=== PATIENT | male | born 1990 | race Caucasian/White ===

== ENCOUNTER 2024-12-15 10:53 | Emergency (ER) | payer OTHER ==
--- OUTSIDE RECORDS SUMMARY | 2024-12-15 10:56 | XMS REPORT | Continuity of Care Document ---
Author Name Unknown Address [address] [facility] [address] [place] [address] [facility] Address [address] [facility]. [address] [place] [address] Care Team Providers Care Security Chief [employer] Name Role Phone NELLY DAMON Primary Care Physician UnavailLita Palacio Attending Clinician Unavailable Luke Fofana Attending Clinician [phone] Unknown, Attending Attending Clinician Unavailab LUKE Holt Attending Clinician Unavailable Nelly Velasquez Attending Clinician [phone] ARNAUD COULTER Attending Clinician UnavailARNAUD Dave Attending Clinician UnavailArnaud Dave MD Attending Clinician + [phone] [facility] Attending Clinician UnavailNELLY Schwartz Attending Clinician Unavailable Nelly Velasquez Attending Clinician [phone] AJ PUGA Attending Clinician Unavailable Aj Puga MD Attending Clinician [phone] Unknown, Attending Attending Clinician Unavailab Edita Villatoro Attending Clinician [phone] EDITA SHAFFER Attending Clinician Unavailable Doctor Unassigned, [facility] Attending Clinician U navailable Lab, Ang - Db Attending Clinician Unavailable Alice Corbin RN Attending Clinician Unavailab Freida Montanez Attending Clinician [phone] Payers Payer Name Policy Type Policy Number Effective Date Expirati on Date Source Problems Condition Name Condition Details Condition Category Status Onset Date Resolution Date Last Treatment Date Treating Clinician Comments Source Obesity (BMI 30-39.9) Obesity (BMI 30-39.9) Disease Active 06-12 00:00: 00 [facility] Hypertrigl yceridemia Hypertrigl yceridemia Diagnosis Active [facility] Overweight (BMI 25.0-29.9) Overweight (BMI 25.0-29.9) Diagnosis Active [facility] Encounter for vitamin deficiency screening Encounter for vitamin deficiency screening Problem Active [facility] BMI 28.0-28.9, adult BMI 28.0-28.9, adult Problem Active [facility] 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 [facility] Hyperlipid emia, unspecifie d Hyperlipid emia, unspecifie d Problem Active [facility] Allergies, Adverse Reactions, Alerts Allergy Name Allergy Type Status Severity Reaction(s) Onset Date Inactive Date Treating Clinician Comments Source NO KNOWN ALLERGIE S Drug Class Active [facility] Social History Social Habit Start Date Stop Date Quantity Comments Source [facility] intake 2024-05-16 00:00:00 2024-05-16 00:00:00 Ex-drinker (finding) [facility] History of Social function 2024-03-28 00:00:00 2024-03-28 00:00:00 [facility] Alcohol Comment 2024-03-28 00:00:00 2024-03-28 00:00:00 occasional [facility] Exposure to SARS-CoV-2 (event) 2022-10-29 00:00:00 2022-11-08 12:28:00 Not sure [facility] Alcohol intake 2022-06-18 00:00:00 2022-06-18 00:00:00 .43 /d [facility] Tobacco use and exposure 2021-06-12 00:00:00 2021-06-12 00:00:00 Smokeless tobacco non-user [facility] Sex assigned at 1990 00:00:00 1990 00:00:00 [facility] Smoking Status Start Date Stop Date Source Never smoked tobacco [facility] Medications Ordered Medication Name Filled Medication Name Start Date Stop Date Current Medication? Ordering Clinician Indication Dosage Frequency Signature (SIG) Comments Components Source promethazin e-dextromet horphan 6.25-15 mg/5 mL syrup 12-13 00:00: 00 12-24 04:59 :00 Yes [id number] 10mL Take 10 mL by mouth 4 (four) times daily for 10 days. [facility] oseltamivir (TAMIFLU) 75 mg capsule 12-13 00:00: 00 12-19 04:59 :00 Yes [id number] 75mg Take 1 capsule by mouth in the morning and 1 capsule in the evening. Do all this for 5 days. [facility] FENOFIBRATE MICRONIZED 134 mg capsule 2023-09 00:00: 00 Yes [id number] 134mg Take 1 capsule by mouth in the morning [facility] bromphenira mine-pseudo ephedrine-D M (BROMFED DM) 2-30-10 mg/5 mL syrup 04-15 00:00: 00 Yes [id number] 10mL Take 10 mL by mouth 4 (four) times daily as needed for Congestion /Allergies or Cold symptoms. [facility] methylPREDN ISolone (MEDROL, KATHERIN,) 4 mg tablets 04-15 00:00: 00 Yes [id number] Take by mouth SEE-INSTRU CTIONS. follow package directions [facility] guaiFENesin 400 mg tablet 04-15 00:00: 00 Yes [id number] 400mg Take 1 tablet by mouth every 4 (four) hours as needed for Cough. [facility] amoxicillin -clavulanat e (AUGMENTIN) 875-125 mg per tablet 04-15 00:00: 00 04-26 04:59 :00 No [id number] 1{tbl} Take 1 tablet by mouth in the morning and 1 tablet in the evening. Do all this for 10 days. [facility] albuterol 90 mcg/actuati on inhaler 04-10 00:00: 04-21 04:59 :00 No [id number] 2{puff} Inhale 2 Puffs every 6 (six) hours as needed (cough) for up to 10 days. [facility] benzonatate 200 mg capsule 04-10 00:00: 00 04-21 04:59 :00 No [id number] 200mg Take 1 capsule by mouth 3 (three) times daily as needed for Cough for up to 10 days. [facility] fenofibrate micronized 134 mg capsule 03-29 00:00: 07-20 00:00 :00 No [id number] 134mg Take 1 capsule by mouth in the morning. [facility] predniSONE 20 mg tablet 12-11 00:00: 03-28 00:00 :00 No [id number] Take three tablets daily for 6 days, then two tablets daily for 6 days, then one tablet daily for 6 days, then half tablet daily for 6 days. [facility] sulfamethox azole-trime thoprim (BACTRIM DS) 800-160 mg per tablet 11-08 00:00: 11-16 05:59 :00 No [id number] 1{tbl} Take 1 tablet by mouth in the morning and 1 tablet in the evening. Do all this for 7 days. [facility] mupirocin 2 % ointment 11-08 00:00: 11-16 05:59 :00 No [id number] Apply to area(s) 3 (three) times daily for 7 days. [facility] ibuprofen (IBU) tablet 800 mg 06-18 14:36: 00 06-18 14:38 :00 No [id number] 800mg [facility] ondansetron (ZOFRAN-ODT ) disintegrat ing tablet 4 mg 06-18 14:33: 00 06-18 14:37 :00 No [id number] 4mg [facility] ondansetron 4 mg disintegrat ing tablet 06-18 00:00: 00 03-28 00:00 :00 No [id number] 4mg Take 1 tablet by mouth every 8 (eight) hours as needed for Nausea and Vomiting (N/V). [facility] dicyclomine 10 mg capsule 06-18 00:00: 00 03-28 00:00 :00 No [id number] 10mg Take 1 capsule by mouth 4 (four) times daily as needed for Abdominal pain. [facility] No known medications 06-12 14:08: 26 No [facility] Vascepa Vascepa 01-04 00:00: 00 05-04 00:00 :00 No Na Katz 2 capsules with meals [facility] Ambien Ambien 12-22 00:00: 00 Yes Na Katz 1 tablet at bedtime [facility] Vital Signs Vital Name Observation Time Observation Value Comments S ource Systolic blood pressure 2024-12-13 20:41:00 113 mm[Hg] [facility] Diastolic blood pressure 2024-12-13 20:41:00 71 mm[Hg] [facility] Heart rate 2024-12-13 20:41:00 97 /min [facility] Body temperature 2024-12-13 20:41:00 38 Jacquie [facility] Respiratory rate 2024-12-13 20:41:00 22 /min [facility] Body weight 2024-12-13 20:41:00 107.82 kg [facility] BMI 2024-12-13 20:41:00 33.15 kg/m2 [facility] Oxygen saturation in Arterial blood by Pulse oximetry 2024-12-13 20:41:00 97 /min [facility] Systolic blood pressure 2024-07-04 20:19:00 128 mm[Hg] [facility] Diastolic blood pressure 2024-07-04 20:19:00 86 mm[Hg] [facility] Heart rate 2024-07-04 20:19:00 58 /min [facility] Respiratory rate 2024-07-04 20:19:00 16 /min [facility] Body height 2024-07-04 20:19:00 180.3 cm [facility] Body weight 2024-07-04 20:19:00 105.348 kg [facility] BMI 2024-07-04 20:19:00 32.39 kg/m2 [facility] Oxygen saturation in Arterial blood by Pulse oximetry 2024-07-04 20:19:00 97 /min [facility] Systolic blood pressure 2024-04-19 14:17:00 121 mm[Hg] [facility] Diastolic blood pressure 2024-04-19 14:17:00 76 mm[Hg] [facility] Heart rate 2024-04-19 14:17:00 66 /min [facility] Body temperature 2024-04-19 14:17:00 37 Jacquie [facility] Body height 2024-04-19 14:17:00 180.3 cm [facility] Body weight 2024-04-19 14:17:00 104.327 kg [facility] BMI 2024-04-19 14:17:00 32.08 kg/m2 [facility] Oxygen saturation in Arterial blood by Pulse oximetry 2024-04-19 14:17:00 97 /min [facility] Systolic blood pressure 2024-04-15 14:20:00 118 mm[Hg] [facility] Diastolic blood pressure 2024-04-15 14:20:00 80 mm[Hg] [facility] Heart rate 2024-04-15 14:20:00 88 /min [facility] Body temperature 2024-04-15 14:20:00 37.61 Jacquie [facility] Respiratory rate 2024-04-15 14:20:00 17 /min [facility] Body height 2024-04-15 14:20:00 180.3 cm [facility] Body weight 2024-04-15 14:20:00 104.866 kg [facility] BMI 2024-04-15 14:20:00 32.24 kg/m2 [facility] Oxygen saturation in Arterial blood by Pulse oximetry 2024-04-15 14:20:00 94 /min [facility] Systolic blood pressure 2024-04-10 14:38:00 124 mm[Hg] [facility] Diastolic blood pressure 2024-04-10 14:38:00 82 mm[Hg] [facility] Heart rate 2024-04-10 14:38:00 77 /min [facility] Body temperature 2024-04-10 14:38:00 36.22 Jacquie [facility] Respiratory rate 2024-04-10 14:38:00 17 /min [facility] Body height 2024-04-10 14:38:00 180.3 cm [facility] Body weight 2024-04-10 14:38:00 105.915 kg [facility] BMI 2024-04-10 14:38:00 32.57 kg/m2 [facility] Oxygen saturation in Arterial blood by Pulse oximetry 2024-04-10 14:38:00 97 /min [facility] Systolic blood pressure 2024-03-28 13:58:00 127 mm[Hg] [facility] Diastolic blood pressure 2024-03-28 13:58:00 83 mm[Hg] [facility] Heart rate 2024-03-28 13:58:00 71 /min [facility] Body temperature 2024-03-28 13:58:00 36.72 Jacquie [facility] Respiratory rate 2024-03-28 13:58:00 19 /min [facility] Body height 2024-03-28 13:58:00 180.3 cm [facility] 2024-03-28 13:58:00 107.049 kg [facility] BMI 2024-03-28 13:58:00 32.92 kg/m2 [facility] Oxygen saturation in Arterial blood by Pulse oximetry 2024-03-28 13:58:00 98 /min [facility] Body weight 2022-11-08 18:41:00 94.212 kg [facility] BMI 2022-11-08 18:41:00 28.97 kg/m2 [facility] Oxygen saturation in Arterial blood by Pulse oximetry 2022-11-08 18:41:00 98 /min [facility] Systolic blood pressure 2022-11-08 18:41:00 126 mm[Hg] [facility] Diastolic blood pressure 2022-11-08 18:41:00 86 mm[Hg] [facility] Heart rate 2022-11-08 18:41:00 91 /min [facility] Body temperature 2022-11-08 18:41:00 36.78 Jacquie [facility] Respiratory rate 2022-11-08 18:41:00 17 /min [facility] Body height 2022-11-08 18:41:00 180.3 cm [facility] Systolic blood pressure 2022-06-18 14:28:00 127 mm[Hg] [facility] Diastolic blood pressure 2022-06-18 14:28:00 80 mm[Hg] [facility] Heart rate 2022-06-18 14:28:00 125 /min [facility] Body temperature 2022-06-18 14:28:00 38.89 Jacquie [facility] Body height 2022-06-18 14:28:00 180.3 cm [facility] Body weight 2022-06-18 14:28:00 104.327 kg [facility] BMI 2022-06-18 14:28:00 32.08 kg/m2 [facility] Oxygen saturation in Arterial blood by Pulse oximetry 2022-06-18 14:28:00 98 /min [facility] Systolic blood pressure 2021-06-12 18:40:00 133 mm[Hg] [facility] Diastolic blood pressure 2021-06-12 18:40:00 84 mm[Hg] [facility] Heart rate 2021-06-12 18:40:00 69 /min [facility] Body temperature 2021-06-12 18:40:00 37.06 Jacquie [facility] Body height 2021-06-12 18:40:00 180.3 cm [facility] Body weight 2021-06-12 18:40:00 104.327 kg [facility] BMI 2021-06-12 18:40:00 32.08 kg/m2 [facility] Oxygen saturation in Arterial blood by Pulse oximetry 2021-06-12 18:40:00 99 /min [place] [facility] Procedures Procedure Date / Time Performed Performing Clinicia n Source POCT MOLECULAR FLU 2024-12-13 20:43:00 Unknown, Attend ing [facility] SLEEP STUDY DATA REPORT 2024-05-15 19:03:02 Nelly Damon [facility] SLEEP LAB RESULTS 2024-05-15 19:02:07 Nelly Damon [facility] XR CHEST 2 VW 2024-04-15 14:44:23 Aj Puga [facility] POCT MOLECULAR STREP 2024-04-15 14:25:00 Unknown, Attmeghan leigh [facility] POCT SARS-COV-2 ANTIGEN (BINAX NOW) 2024-04-15 14:17:00 Aj Puga [facility] POCT MOLECULAR FLU 2022-06-18 14:40:00 Aj Puga [facility] CONSENT/REFUSAL FOR DIAGNOSIS AND TREATMENT 2022-06-18 14:15:57 Doctor Unassigned, [facility] Encounters Start Date/Time End Date/Time Encounter Type Admission Type Attending [facility] Care Facility Care Department Encounter ID Source 2024-05-28 09:42:[address] [facility] [id number] [facility] 2024-12-13 15:40:00 2024-12-13 16:00:00 Urgent Care Luke Givens Unknown, [facility] 1.2.840.114 350.1.13.10 4.2.7.2.686 [id number] [facility] 2024-12-13 15:40:00 2024-12-13 15:40:00 Outpatient LUKE DAVILA [facility] [id number] [facility] 2024-05-15 00:00:00 2024-11-03 07:03:54 Orders Only Nelly Damon [facility] 1.2.840.114 350.1.13.10 4.2.7.2.686 [id number] [facility] 2024-05-15 00:00:00 2024-11-03 07:03:42 Orders Only Nelly Damon [facility] 1.2.840.114 350.1.13.10 4.2.7.2.686 [id number] [facility] 2024-08-21 00:00:00 2024-08-21 16:28:44 Refill Nelly Damon [facility] 1.2.840.114 350.1.13.10 4.2.7.2.686 [id number] [facility] 2024-06-28 00:00:00 2024-08-04 18:27:02 Patient Secure Msg Nelly Damon [facility] 1.2.840.114 350.1.13.10 4.2.7.2.686 [id number] [facility] 2024-07-20 00:00:00 2024-07-20 09:38:41 Refill Nelly Damon [facility] 1.2.840.114 350.1.13.10 4.2.7.2.686 [id number] [facility] 2024-07-04 00:00:00 2024-07-04 15:30:40 Telephone Arnaud Coulter [facility] 1.2.840.114 350.1.13.10 4.2.7.2.686 [id number] [facility] 2024-07-04 15:00:00 2024-07-04 15:30:00 Office Visit Arnaud Coulter [facility] 1.2.840.114 350.1.13.10 4.2.7.2.686 [id number] [facility] 2024-07-04 15:00:00 2024-07-04 15:00:00 Outpatient R ARNAUD COULTER STRAHIL [facility] [id number] [facility] 2024-06-05 00:00:00 2024-06-05 15:52:36 Telephone Gavin Nelly Farah [facility] 1.2.840.114 350.1.13.10 4.2.7.2.686 [id number] [facility] 2024-05-24 00:00:00 2024-05-28 14:21:17 Patient Secure Msg GavinNelly parmar [facility] 1.2.840.114 350.1.13.10 4.2.7.2.686 [id number] [facility] 2024-05-25 00:00:00 2024-05-25 16:02:06 Telephone Obdulia Damonmeghan Farah [facility] 1.2.840.114 350.1.13.10 4.2.7.2.686 [id number] [facility] 2024-05-16 00:00:00 2024-05-16 09:20:36 Telephone Gavin Nelly Farah [facility] 1.2.840.114 350.1.13.10 4.2.7.2.686 [id number] [facility] 2024-05-10 15:00:00 2024-05-10 15:15:00 [employer] 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[employer] 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 Visit [facility] Sleep Lab Arnaud Coulter [facility] 1.840.114 350.1.13.10 4.2.7.2.686 [id number] [facility] 2024-05-10 15:00:00 2024-05-10 15:00:00 Outpatient R ARNAUD COULTER STRALAIsra [facility] [id number] [facility] 2024-04-19 09:30:00 2024-04-19 10:00:22 Outpatient R NELLY DAMON [facility] [id number] [facility] 2024-04-19 09:30:00 2024-04-19 10:00:22 Office Visit Nelly Damon [facility] 1.840.114 350.1.13.10 4.2.7.2.686 [id number] [facility] 2024-04-15 09:30:05 2024-04-15 23:59:00 Outpatient R AJ PUGA [facility] [id number] [facility] 2024-04-15 09:30:05 2024-04-15 23:59:00 [facility] 1.840.114 350.1.13.10 4.2.7.2.686 [id number] [facility] 2024-04-15 09:20:00 2024-04-15 09:51:36 Urgent Care Aj Puga, Attending [facility] 1..840.114 350.1.13.10 4.2.7.2.686 [id number] [facility] 2024-04-10 09:20:00 2024-04-10 09:40:00 Urgent Care Edita Shaffer Unknown, Attending [facility] 1.2.840.114 350.1.13.10 4.2.7.2.686 [id number] [facility] 2024-04-10 09:20:00 2024-04-10 09:20:00 Outpatient R SHAFFERDAVID PHILLIPKASEY [facility] [id number] [facility] 2024-03-29 00:00:00 2024-03-29 16:06:27 Patient Secure Msg Doctor Unassigned, 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 Lab, Ang - Nelly Brock Gagan [facility] 1.2.840.114 350.1.13.10 4.2.7.2.686 [id number] [facility] 2024-03-28 10:00:00 2024-03-28 09:34:42 Outpatient R NELLY DAMON [facility] [id number] [facility] 2024-03-28 09:00:00 2024-03-28 09:20:32 Office Visit Nelly Damon [facility] 1.2.840.114 350.1.13.10 4.2.7.2.686 [id number] [facility] 2023-12-12 11:40:00 2023-12-12 11:56:55 Outpatient R EDITA SHAFFER [facility] [id number] [facility] 2022-11-08 12:20:00 2022-11-08 12:40:00 Urgent Care David Shafferbreakimberley Unknown, Attending [facility] 1..840.114 350.1.13.10 4.2.7.2.686 [id number] [facility] 2022-11-08 12:20:00 2022-11-08 12:20:00 Outpatient R EDITA SHAFFER [facility] [id number] [facility] 2022-06-19 00:00:00 2022-06-19 00:00:00 Letter (Out) Alice Corbin [facility] 1..840.114 350.1.13.10 4.2.7.2.686 [id number] [facility] 2022-06-18 09:20:00 2022-06-18 09:58:39 Outpatient AJ MELLO [facility] [id number] [facility] 2022-06-18 09:20:00 2022-06-18 09:40:00 Urgent Care Freida Buckley [facility] 1.2.840.114 350.1.13.10 4.2.7.2.686 [id number] [facility] 2022-06-18 00:00:00 2022-06-18 00:00:00 Orders Only Doctor Unassigned, [facility] 1.2.840.114 350.1.13.10 4.2.7.2.686 [id number] [facility] 2021-06-12 13:24:05 2021-06-12 14:19:55 Office Visit Nelly Damon [facility] 1.2.840.114 350.1.13.10 4.2.7.2.686 [id number] [facility] 2021-06-12 13:30:00 2021-06-12 13:30:00 Outpatient R NELLY DAMON [facility] [id number] [facility] 2020-12-18 13:00:00 2020-12-18 13:00:00 Outpatient NELLY TOBIN [facility] [id number] [facility] 2019-01-04 16:40:00 2019-01-04 16:40:00 [facility] [id number] [facility] Results Test Description Test Time Test Comments Results Result Co mments Source [facility] SARS-COV-2 ANTIGEN (BINAX NOW)2024-04-15 14:33:00* Test Item Value Reference Range Interpretation Comme nts POCT SARS-COV-2 ANTIGEN (test code = 31362-9) Not Detected Not Detected, See Comment On board controls acceptable with C Line (test code = 3574) Yes Lab Interpretation (test code = 33987-4) Normal [facility] MOLECULAR [id number] 14:32:52* Test Item Value Reference Range Interpretation Comme nts POCT Molecular Strep (test c ode = 42771-2) Negative Negative Lab Interpretation (test cod e = 51269-7) Normal [facility] MOLECULAR [id number] 14:51:39* Test Item Value Reference Range Interpretation Comme nts POCT Molecular FluA (test co de = 65025-6) Negative Negative POCT Molecular FluB (test co de = 72697-8) Negative Negative Lab Interpretation (test cod e = 46011-7) Normal [facility] Notes Date/Time Note Provider Source 2024-08-21 16:21:17 Spoke with patient, he still has a 30 day supply of fenofibrate and he will talk to his about scheduling appointment, they my be changing providers. 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 Notes: 03/29/24 Last Refilled: [facility] [address] [place] [address] Recent Visits Date Type Provider Dept 04/19/24 Office Visit Nelly Damon PA [facility] 03/28/24 Office Visit Nelly Damon PA [facility] Showing recent visits within past 540 days with a meds authorizing provider and meeting all other requirements Future Appointments No visits were found meeting these conditions. Showing future appointments within next 150 days with a meds authorizing provider and meeting all other requirements Name from pharmacy: Fenofibrate Micronized 134 MG Oral Capsule Will file in chart as: FENOFIBRATE MICRONIZED 134 mg capsule Sig: Take 1 capsule by mouth in the morning. Original sig: Take 1 capsule by mouth in the morning Disp: 30 capsule Refills: 0 Start: 07/20/2024 Class: eRX For: Hypertriglyceridemia Last ordered: 3 months ago (03/29/2024) by ALISE Platt Last refill: 06/24/2024 Rx #: [id number] Antilipid: Fibric Acid Derivatives [id number] 05:54 AM Protocol Details Valid encounter within last 12 months AST in normal range and within 360 days ALT in normal range and within 360 days HDL within 360 days LDL within 360 days Total Cholesterol within 360 days Triglycerides within 360 days To be filled at: [facility] [address] [place] [address] Terese Montoya KAMRAN [facility] 2024-07-04 15:47:49 New APAP orders submitted via [place] to [place] Patient. All forms scanned into chart. If any questions on status order please contact [facility] at [phone]. Shayy Alvarez MA [facility] 2024-07-04 15:29:46 New APAP at 5-15 cm H2O SLEEP MEDICINE-PHYSICIAN/I NTERNAL MED [facility] 2024-06-29 14:38:04 Noted Gladis Noriega MA [facility] 2024-06-05 15:49:00 Patient signed Medical release forms to have faxed to [facility] P: [phone] F:[phone] Faxed to HIM to retreive those records and have it faxed. Jose F Chang [facility] 2024-05-25 15:59:39 Images from the original note were not included. [facility] medical records request form.// placed in providers basket. Freida Irizarry [facility] 2024-05-24 20:32:44 Recommend patient signing a record release from our office to send sleep apnea testing to his provider at the [place]. He can complete with PSS at any time M-F. [facility] 2024-03-28 10:00:00 Images from the original note were not included. Venipuncture collection performed by clean technique on the left anticubitus. Total of 1 attempts were made. Slight pressure and a bandage/dressing were applied to the site(s). The patient experienced no complications. The following specimens were processed according to instructions and sent to [facility] laboratories per lab order on 03/28/2024 : LT BLUE SST 2 RED LAV 2 PPT DK GREEN (LiHep) DK GREEN (SodH) OBANDO DK BLUE (K2) DK BLUE (S) ACD Blood Culture NIPT/NTD T [facility]
[2024-12-15] MEDS ORDERED: ONDANSETRON 4 MG (ODT) TAB ONE (11:05)
[2024-12-15] MEDS ORDERED: NA CHLORIDE 0.9% 1,000 ML ONE (11:11)
[2024-12-15] MEDS ORDERED: ONDANSETRON 4 MG/2 ML VIAL ONE (11:13)
[2024-12-15] MEDS ORDERED: KETOROLAC 30 MG/ML INJ ONE (11:13)
[2024-12-15 12:17] LABS: Absolute Lymphocytes (CBC) 0.8 K/uL (0.7-4.9); Absolute Monocytes 0.9 K/uL (0.1-1.3); Absolute Neutrophil 5.9 K/uL (1.8-8.0); Basophils % 0.4 % (0-1.3); Eosinophils % 0.1 % (0-4.4); Hematocrit 35.6 % (39.6-49.0); Hemoglobin 12.2 g/dL (13.6-17.9); Lymphocytes % 10.9 % (15.3-44.8); MCH 29.4 pg (27.0-35.0); MCHC 34.1 g/dL (32.0-36.0); MCV 86.3 fL (80-100); MPV 9.2 fL (7.6-11.3); Monocytes % 11.7 % (3.3-12.3); Neutrophils % 76.9 % (41.7-73.7); Platelets 139 thou/uL (152-406); RBC Red Blood Cell Count 4.13 M/uL (4.33-5.43)
--- NOTE | 2024-12-15 12:42 | RAD REPORT ---
EXAMINATION: TWO VIEW CHEST XR CLINICAL INDICATION: Male, 34 years old. [facility] MAIN Cough;Fever Bed Name: TECHNIQUE: 2 view radiographs of the chest were performed. COMPARISON: 07/26/2024 FINDINGS: The lungs are grossly clear apart from bibasilar streaky atelectasis, although suboptimal inspiratory effort somewhat limits evaluation. No pneumothorax or sizable effusion. The heart is normal in size. Mediastinal contours are unremarkable. IMPRESSION: No acute or significant abnormalities.
--- NOTE | 2024-12-15 13:23 | EDPHYS ---
Physician Documentation [facility] Name: Reyes Miles Age: 34 yrs Sex: Male : 1990 Arrival Date: 12/15/2024 Time: 10:53 Bed 11 Private MD: ED Physician Yuliana Farris HPI: 12/15 14:12 This 34 yrs old Male presents to ER via Ambulatory with complaints of Flu dr5 Symptoms. 14:12 Onset: The symptoms/episode began/occurred 3 day(s) ago. Patient is a 34-year-old male dr5 with history of hyperlipidemia coming in with flulike symptoms/diagnosed with influenza A last Tuesday. Patient was at [facility] and was prescribed Tamiflu. Patient reports that he has since become more nauseated with vomiting and unable to keep fluids down. Patient also has Promethazine DM to take for cough.. Historical: - Allergies: 11:07 No Known Allergies; cm10 - PMHx: 11:07 Elevated Triglycerides; cm10 - PSHx: 11:07 None; cm10 - Immunization history:: Adult Immunizations up to date. - Infectious Disease History:: Denies. - Social history:: Smoking status: Patient denies any tobacco usage or history of. ROS: 14:12 Constitutional: as per hpi dr5 Exam: 14:12 Constitutional: This is a well developed, well nourished patient who is awake, alert, dr5 and in no acute distress. Head/Face: Normocephalic, atraumatic. Eyes: Pupils equal round and reactive to light, extra-ocular motions intact. Lids and lashes normal. Conjunctiva and sclera are non-icteric and not injected. Cornea within normal limits. Periorbital areas with no swelling, redness, or edema. Neck: Trachea midline, no thyromegaly or masses palpated, and no cervical lymphadenopathy. Supple, full range of motion without nuchal rigidity, or vertebral point tenderness. No Meningismus. Chest/axilla: Normal chest wall appearance and motion. Nontender with no deformity. No lesions are appreciated. Cardiovascular: Regular rate and rhythm with a normal S1 and S2. Normal PMI, no JVD. No pulse deficits. Respiratory: Lungs have equal breath sounds bilaterally, clear to auscultation. No rales, rhonchi or wheezes noted. No increased work of breathing, no retractions or nasal flaring. Back: No spinal tenderness. No costovertebral tenderness. Full range of motion. Skin: Warm, dry with normal turgor. Normal color with no rashes, no lesions, and no evidence of cellulitis. MS/ Extremity: Pulses equal, no cyanosis. Neurovascular intact. Full, normal range of motion. Neuro: Awake and alert, GCS 15, oriented to person, place, time, and situation. Cranial nerves II-XII grossly intact. Motor strength 5/5 in all extremities. Sensory grossly intact. Cerebellar exam normal. Normal gait. Vital Signs: 11:06 BP 123 / 69; Pulse 93; Resp 18; Temp 100.1(O); Pulse Ox 96% on R/A; Weight 106.59 kg; cm10 Height 5 ft. 1 in. ; Pain 5/10; 13:35 BP 117 / 72; Pulse 76; Resp 16; Temp 98.3(O); Pulse Ox 96% on R/A; Pain 0/10; le1 11:06 Body Mass Index 44.40 (106.59 kg, 154.94 cm) cm10 11:06 Pain Scale: Adult cm10 13:35 Pain Scale: Adult le1 MDM: 10:56 Medical Screening Exam initiated dr5 14:12 Differential diagnosis: viral Infection, bacterial infection, URI, pneumonia Influenza dr5 A. Data reviewed: vital signs, nurses notes, lab test result(s), radiologic studies. I considered the following discharge prescriptions or medication management in the emergency department Medications were administered in the Emergency Department. See MAR. Historians other than the Patient: Parent: Mother. Care significantly affected by the following Social Determinants of Health: Poor access to healthcare and/or lack of insurance, Poor access to transportation, Problems related to employment. Counseling: I had a detailed discussion with the patient and/or guardian regarding the historical points, exam findings, and any diagnostic results supporting the discharge/admit diagnosis, the presence of at least one elevated blood pressure reading (>120/80) during this emergency department visit, lab results, radiology results, the need for outpatient follow up, for definitive care, a family practitioner, to return to the emergency department if symptoms worsen or persist or if there are any questions or concerns that arise at home. Medication response: Toradol relieved patient's pain. The symptoms have resolved, Zofran relieved the patient's nausea. Response to treatment: the patient's symptoms have resolved after treatment. ED course: Recommended patient stop taking Tamiflu to see if nausea vomiting resolves. Patient's nausea resolved today after Zofran and patient had 40 mEq of potassium to replace it. Recommended patient increase hydration and alternate Tylenol Motrin as needed for pain fever. Lab work and chest x-ray requested by mother and his . I printed out all those results and put in discharge paperwork to take to primary care doctor. Strict ER precautions given. Patient reports he is feeling much better on discharge.. 12/15 11:40 Order name: CBC with Diff; Complete Time: 12:23 dr5 12/15 11:40 Order name: BMP; Complete Time: 12: [facility] 12/15 11:40 Order name: COVID-19 Ag + Flu A+B Ag; Complete Time: 13:35 [facility] 12/15 11:40 Order name: Chest Pa And Lat (2 Views) XRAY; Complete Time: 12:44 dr5 Administered Medications: 11:15 Drug: Ondansetron PO 4 mg PO once Route: PO; cm10 13:25 Follow up: Response: No adverse reaction; Nausea is decreased le1 11:21 Drug: NS 0.9% IV 1000 ml IV at 1000 ml once; to be given as a bolus over 60 minutes cm10 Route: IV; Rate: 1000 ml; Site: right forearm; 13:34 Follow up: Response: No adverse reaction; IV Status: Completed infusion; IV Intake: le1 1000ml 11:21 Drug: Ondansetron IVP 4 mg IVP once; over 2 minutes Route: IVP; Site: right forearm; cm10 13:25 Follow up: Response: No adverse reaction; Nausea is decreased le1 11:21 Drug: Ketorolac IVP 15 mg IVP once Route: IVP; Site: right forearm; cm10 13:25 Follow up: Response: No adverse reaction; Pain is decreased le1 13:34 Drug: Potassium Chloride PO 40 mEq PO once Route: PO; le1 13:34 Follow up: Response: No adverse reaction; Medication Administered at Departure le1 Disposition Summary: 12/15/24 13:22 Discharge Ordered Notes: Location: Home dr5 Condition: Stable dr5 Diagnosis - Influenza due to identified novel influenza A virus dr5 Followup: dr5 - With: Emergency Department - When: As needed - Reason: Worsening of condition Followup: dr5 - With: Private Physician - When: 1 - 2 days - Reason: Recheck today's complaints, Continuance of care, Re-evaluation by your physician Discharge Instructions: - Discharge Summary Sheet dr5 - Influenza, Adult dr5 Forms: - Medication Reconciliation Form dr5 - Patient Portal Instructions dr5 - Leadership Thank You Letter dr5 Prescriptions: - Zofran 4 mg Oral Tablet - take 1 tablet ORAL route every 12 hours As needed; 20 tablet; Refills: 0, dr5 Product Selection Permitted - benzonatate 100 mg Oral capsule - take 1 capsule ORAL route 3 times per day; 30 capsule; Refills: 0, Product dr5 Selection Permitted Signatures: Dispatcher [employer] EDJes Love, RN RN cm10 Jo-Ann Lomax RN RN le1 Khoa Caraballo, MUSCULOSKELETAL PHYSIOTHERAPIST-C MUSCULOSKELETAL PHYSIOTHERAPIST-Cdr5 Corrections: (The following items were deleted from the chart) 11:19 10:56 Group A Streptococcus Rapid Sc+I.LAB.BRZ ordered. EDMS EDMS 11:20 10:56 COVID-19 Ag + Flu A+B Ag+I.LAB.BRZ ordered. EDMS EDMS
--- NOTE | 2024-12-15 13:23 | ER ---
Nurse's Notes [facility] Name: Reyes Miles Age: 34 yrs Sex: Male : 1990 Arrival Date: 12/15/2024 Time: 10:53 Bed 11 Private MD: Diagnosis: Influenza due to identified novel influenza A virus Presentation: 12/15 11:06 Chief complaint: Patient states: DIAGNOSED WITH THE FLU ON TUESDAY AND HAS NOT BEEN cm10 ABLE TO KEEP ANYTHING DOWN. PT STATES THAT HE WAS STARTED ON TAMIFLU. Coronavirus screen: Client denies travel out of the [place] in the last 14 days. Ebola Screen: Patient denies travel to an Ebola-affected area in the 21 days before illness onset. Initial Sepsis Screen: Does the patient meet any 2 criteria? HR > 90 bpm. Does the patient have a suspected source of infection? No. Patient's initial sepsis screen is negative. Risk Assessment: Do you want to hurt yourself or someone else? Patient reports no desire to harm self or others. Onset of symptoms was December 15, 2024. 11:06 Method Of Arrival: Ambulatory cm10 11:06 Acuity: ROBIN 4 cm10 Triage Assessment: 11:08 General: Appears uncomfortable, Behavior is calm, cooperative. Pain: Complains of pain cm10 in GENERALIZED BODY ACHES Pain currently is 5 out of 10 on a pain scale. Neuro: No deficits noted. Level of Consciousness is awake, alert, obeys commands, Oriented to person, place, time, situation, Appropriate for age. Respiratory: No deficits noted. Airway is patent Respiratory effort is even, unlabored, Respiratory pattern is regular, symmetrical. GI: Reports intolerance of fluids, intolerance of food, nausea, vomiting. Historical: - Allergies: 11:07 No Known Allergies; cm10 - PMHx: 11:07 Elevated Triglycerides; cm10 - PSHx: 11:07 None; cm10 - Immunization history:: Adult Immunizations up to date. - Infectious Disease History:: Denies. - Social history:: Smoking status: Patient denies any tobacco usage or history of. Screenin:08 [facility] ED Fall Risk Assessment (Adult) History of falling in the last 3 months, cm10 including since admission No falls in past 3 months (0 pts) Confusion or Disorientation No (0 pts) Intoxicated or Sedated No (0 pts) Impaired Gait No (0 pts) Mobility Assist Device Used No (0 pt) Altered Elimination No (0 pt) Score/Fall Risk Level 0 - 2 = Low Risk Oriented to surroundings, Maintained a safe environment, Hourly rounding (assess needs \T\ fall precautionary measures) done. Abuse screen: Denies threats or abuse. Denies injuries from another. Nutritional screening: No deficits noted. Tuberculosis screening: No symptoms or risk factors identified. Assessment: 13:35 General: Appears in no apparent distress. comfortable. Pain: Denies pain. Neuro: No le1 deficits noted. Cardiovascular: No deficits noted. Respiratory: No deficits noted. GI: No deficits noted. : No deficits noted. EENT: No deficits noted. Derm: No deficits noted. Musculoskeletal: No deficits noted. Vital Signs: 11:06 BP 123 / 69; Pulse 93; Resp 18; Temp 100.1(O); Pulse Ox 96% on R/A; Weight 106.59 kg; cm10 Height 5 ft. 1 in. ; Pain 5/10; 13:35 BP 117 / 72; Pulse 76; Resp 16; Temp 98.3(O); Pulse Ox 96% on R/A; Pain 0/10; le1 11:06 Body Mass Index 44.40 (106.59 kg, 154.94 cm) cm10 11:06 Pain Scale: Adult cm10 13:35 Pain Scale: Adult le1 ED Course: 10:55 Patient arrived in ED. mr 10:55 Rashmi Khoa, ELECTRICAL CHECKOUT MECHANIC-C [facility]5 10:55 Yuliana Farris MD is Attending Physician. dr5 11:07 Triage completed. cm10 11:08 Arm band placed on right wrist. Patient placed in an exam room, on a stretcher. cm10 11:14 Jes Rai, RN is Primary Nurse. cm10 11:21 Inserted saline lock: 20 gauge in right forearm, using aseptic technique. Flushed with em1 10 mL NS. 12:11 Primary Nurse role handed off by Jes Rai, RN le1 12:11 Jo-Ann Lomax, ANN is Primary Nurse. le1 12:11 Initial lab(s) drawn, by ia, sent to lab. COVID swab sent to lab. Flu and/or RSV swab le1 sent to lab. 12:17 Chest Pa And Lat (2 Views) XRAY In Process Unspecified. EDMS 12:30 Patient has correct armband on for positive identification. Bed in low position. Call le1 light in reach. Side rails up X2. Adult w/ patient. Provided Education on: informed to use call light if needing assitance. 13:35 No provider procedures requiring assistance completed. IV discontinued, intact, le1 bleeding controlled, No redness/swelling at site. Pressure dressing applied. Administered Medications: 11:15 Drug: Ondansetron PO 4 mg PO once Route: PO; cm10 13:25 Follow up: Response: No adverse reaction; Nausea is decreased le1 11:21 Drug: NS 0.9% IV 1000 ml IV at 1000 ml once; to be given as a bolus over 60 minutes cm10 Route: IV; Rate: 1000 ml; Site: right forearm; 13:34 Follow up: Response: No adverse reaction; IV Status: Completed infusion; IV Intake: le1 1000ml 11:21 Drug: Ondansetron IVP 4 mg IVP once; over 2 minutes Route: IVP; Site: right forearm; cm10 13:25 Follow up: Response: No adverse reaction; Nausea is decreased le1 11:21 Drug: Ketorolac IVP 15 mg IVP once Route: IVP; Site: right forearm; cm10 13:25 Follow up: Response: No adverse reaction; Pain is decreased le1 13:34 Drug: Potassium Chloride PO 40 mEq PO once Route: PO; le1 13:34 Follow up: Response: No adverse reaction; Medication Administered at Departure le1 Medication: 11:09 VIS not applicable for this client. cm10 Intake: 13:34 IV: 1000ml; Total: 1000ml. le1 Outcome: 13:22 Discharge ordered by . dr5 13:36 Discharged to home ambulatory, le1 13:36 Condition: good 13:36 Discharge instructions given to patient, Instructed on discharge instructions, follow up and referral plans. medication usage, Demonstrated understanding of instructions, follow-up care, medications, Prescriptions given X 2, 13:36 Patient left the ED. le1 Signatures: Dispatcher [employer] EDNY Bellamy Rosamaria, Reg Reg mr Polo Rai em1 Jes Rai, RN RN cm10 Jo-Ann Lomax RN RN le1 Khoa Caraballo, ELECTRICAL CHECKOUT MECHANIC-C ELECTRICAL CHECKOUT MECHANIC-Cdr5
[2024-12-15] MEDS ORDERED: POTASSIUM CL SA 10 MEQ TAB PO ONE (13:27)
[2024-12-15 13:29] LABS: Influenza A Ag Positive; Influenza B Ag Negative; SARS-CoV-2 Antigen Rapid Res Negative (Negative)
[2024-12-15 13:50] VITALS: O2SAT 96
[2024-12-15 14:00] VITALS: BP 117/72; TEMP 98.3
== END 2024-12-15 13:36 | disposition home or self-care (01) ==
LOC: ER 10:53
DX: J10.1 Influenza due to other identified influenza virus with other respiratory manifestations (principal); Z11.52 Encounter for screening for COVID-19
CPT/HCPCS: 85025; 80048; 36415; 71046; 87428; Q0162; J2405; J7030; 96361; 96374; 96375; 99284

== ENCOUNTER 2024-12-21 10:18 | Inpatient (IN) | payer OTHER ==
--- OUTSIDE RECORDS SUMMARY | 2024-12-21 10:22 | XMS REPORT | Continuity of Care Document ---
Author Name Unknown Address [address] [facility] [address] [place] [address] [facility] Address [address] [facility] [place] [address] Care Team Providers Care Maintenance Mechanic Name Role Phone NELLY DAMON Primary Care Physician UnavailLita Palacio Attending Clinician Unavailable Luke Fofana Attending Clinician [phone] Unknown, Attending Attending Clinician Unavailab LUKE Holt Attending Clinician Unavailable Nelly Velasquez Attending Clinician [phone] ARNAUD COULTER Attending Clinician UnavailARNAUD Dave Attending Clinician UnavailArnaud Dave MD Attending Clinician + [phone] [facility] Attending Clinician UnavailNELLY Schwartz Attending Clinician Unavailable Nelly Velasquez Attending Clinician [phone] AJ PUGA Attending Clinician Unavailable Aj Puga MD Attending Clinician [phone] Unknown, Attending Attending Clinician Unavailab Edita Villatoro Attending Clinician [phone] EDITA SHAFFER Attending Clinician Unavailable Doctor Unassigned, [place] Attending Clinician U navailable Lab, Ang - Db Attending Clinician Unavailable Alice Corbin RN Attending Clinician Unavailab Freida Montanez Attending Clinician [phone] Payers Payer Name Policy Type Policy Number Effective Date Expirati on Date Source Problems Condition Name Condition Details Condition Category Status Onset Date Resolution Date Last Treatment Date Treating Clinician Comments Source Obesity (BMI 30-39.9) Obesity (BMI 30-39.9) Disease Active 06-12 00:00: 00 [facility] Hypertrigl yceridemia Hypertrigl yceridemia Diagnosis Active [facility] Overweight (BMI 25.0-29.9) Overweight (BMI 25.0-29.9) Diagnosis Active [facility] Encounter for vitamin deficiency screening Encounter for vitamin deficiency screening Problem Active [facility] BMI 28.0-28.9, adult BMI 28.0-28.9, adult Problem Active [facility] 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 [facility] Hyperlipid emia, unspecifie d Hyperlipid emia, unspecifie d Problem Active [facility] Allergies, Adverse Reactions, Alerts Allergy Name Allergy Type Status Severity Reaction(s) Onset Date Inactive Date Treating Clinician Comments Source NO KNOWN ALLERGIE S Drug Class Active [facility] Social History Social Habit Start Date Stop Date Quantity Comments Source [facility] beverage intake 2024-05-16 00:00:00 2024-05-16 00:00:00 Ex-drinker (finding) [facility] History of Social function 2024-03-28 00:00:00 2024-03-28 00:00:00 [facility] Alcohol Comment 2024-03-28 00:00:00 2024-03-28 00:00:00 occasional [facility] Exposure to SARS-CoV-2 (event) 2022-10-29 00:00:00 2022-11-08 12:28:00 Not sure [facility] Alcohol intake 2022-06-18 00:00:00 2022-06-18 00:00:00 .43 /d [facility] Tobacco use and exposure 2021-06-12 00:00:00 2021-06-12 00:00:00 Smokeless tobacco non-user [facility] Sex assigned at 1990 00:00:00 1990 00:00:00 [facility] Smoking Status Start Date Stop Date Source Never smoked tobacco [facility] Medications Ordered Medication Name Filled Medication Name Start Date Stop Date Current Medication? Ordering Clinician Indication Dosage Frequency Signature (SIG) Comments Components Source promethazin e-dextromet horphan 6.25-15 mg/5 mL syrup 12-13 00:00: 00 12-24 04:59 :00 Yes [id number] 10mL Take 10 mL by mouth 4 (four) times daily for 10 days. [facility] oseltamivir (TAMIFLU) 75 mg capsule 12-13 00:00: 00 12-19 04:59 :00 Yes [id number] 75mg Take 1 capsule by mouth in the morning and 1 capsule in the evening. Do all this for 5 days. [facility] FENOFIBRATE MICRONIZED 134 mg capsule 2023-09 00:00: 00 Yes [id number] 134mg Take 1 capsule by mouth in the morning [facility] bromphenira mine-pseudo ephedrine-D M (BROMFED DM) 2-30-10 mg/5 mL syrup 04-15 00:00: 00 Yes [id number] 10mL Take 10 mL by mouth 4 (four) times daily as needed for Congestion /Allergies or Cold symptoms. [facility] methylPREDN ISolone (MEDROL, KATHERIN,) 4 mg tablets 04-15 00:00: 00 Yes [id number] Take by mouth SEE-INSTRU CTIONS. follow package directions [facility] guaiFENesin 400 mg tablet 04-15 00:00: 00 Yes [id number] 400mg Take 1 tablet by mouth every 4 (four) hours as needed for Cough. [facility] amoxicillin -clavulanat e (AUGMENTIN) 875-125 mg per tablet 04-15 00:00: 00 04-26 04:59 :00 No [id number] 1{tbl} Take 1 tablet by mouth in the morning and 1 tablet in the evening. Do all this for 10 days. [facility] albuterol 90 mcg/actuati on inhaler 04-10 00:00: 04-21 04:59 :00 No [id number] 2{puff} Inhale 2 Puffs every 6 (six) hours as needed (cough) for up to 10 days. [facility] benzonatate 200 mg capsule 04-10 00:00: 00 04-21 04:59 :00 No [id number] 200mg Take 1 capsule by mouth 3 (three) times daily as needed for Cough for up to 10 days. [facility] fenofibrate micronized 134 mg capsule 03-29 00:00: 07-20 00:00 :00 No [id number] 134mg Take 1 capsule by mouth in the morning. [facility] predniSONE 20 mg tablet 12-11 00:00: 03-28 00:00 :00 No [id number] Take three tablets daily for 6 days, then two tablets daily for 6 days, then one tablet daily for 6 days, then half tablet daily for 6 days. [facility] sulfamethox azole-trime thoprim (BACTRIM DS) 800-160 mg per tablet 11-08 00:00: 11-16 05:59 :00 No [id number] 1{tbl} Take 1 tablet by mouth in the morning and 1 tablet in the evening. Do all this for 7 days. [facility] mupirocin 2 % ointment 11-08 00:00: 11-16 05:59 :00 No [id number] Apply to area(s) 3 (three) times daily for 7 days. [facility] ibuprofen (IBU) tablet 800 mg 06-18 14:36: 00 06-18 14:38 :00 No [id number] 800mg [facility] ondansetron (ZOFRAN-ODT ) disintegrat ing tablet 4 mg 06-18 14:33: 00 06-18 14:37 :00 No [id number] 4mg [facility] ondansetron 4 mg disintegrat ing tablet 06-18 00:00: 00 03-28 00:00 :00 No [id number] 4mg Take 1 tablet by mouth every 8 (eight) hours as needed for Nausea and Vomiting (N/V). [facility] dicyclomine 10 mg capsule 06-18 00:00: 00 03-28 00:00 :00 No [id number] 10mg Take 1 capsule by mouth 4 (four) times daily as needed for Abdominal pain. [facility] No known medications 06-12 14:08: 26 No [facility] Vascepa Vascepa 01-04 00:00: 00 05-04 00:00 :00 No Na Katz 2 capsules with meals [facility] Ambien Ambien 12-22 00:00: 00 Yes Na Katz 1 tablet at bedtime [facility] Vital Signs Vital Name Observation Time Observation Value Comments S ource Systolic blood pressure 2024-12-13 20:41:00 113 mm[Hg] [facility] Diastolic blood pressure 2024-12-13 20:41:00 71 mm[Hg] [facility] Heart rate 2024-12-13 20:41:00 97 /min [facility] Body temperature 2024-12-13 20:41:00 38 Jacquie [facility] Respiratory rate 2024-12-13 20:41:00 22 /min [facility] Body weight 2024-12-13 20:41:00 107.82 kg [facility] BMI 2024-12-13 20:41:00 33.15 kg/m2 [facility] Oxygen saturation in Arterial blood by Pulse oximetry 2024-12-13 20:41:00 97 /min [facility] Systolic blood pressure 2024-07-04 20:19:00 128 mm[Hg] [facility] Diastolic blood pressure 2024-07-04 20:19:00 86 mm[Hg] [facility] Heart rate 2024-07-04 20:19:00 58 /min [facility] Respiratory rate 2024-07-04 20:19:00 16 /min [facility] Body height 2024-07-04 20:19:00 180.3 cm [facility] Body weight 2024-07-04 20:19:00 105.348 kg [facility] BMI 2024-07-04 20:19:00 32.39 kg/m2 [facility] Oxygen saturation in Arterial blood by Pulse oximetry 2024-07-04 20:19:00 97 /min [facility] Systolic blood pressure 2024-04-19 14:17:00 121 mm[Hg] [facility] Diastolic blood pressure 2024-04-19 14:17:00 76 mm[Hg] [facility] Heart rate 2024-04-19 14:17:00 66 /min [facility] Body temperature 2024-04-19 14:17:00 37 Jacquie [facility] Body height 2024-04-19 14:17:00 180.3 cm [facility] Body weight 2024-04-19 14:17:00 104.327 kg [facility] BMI 2024-04-19 14:17:00 32.08 kg/m2 [facility] Oxygen saturation in Arterial blood by Pulse oximetry 2024-04-19 14:17:00 97 /min [facility] Systolic blood pressure 2024-04-15 14:20:00 118 mm[Hg] [facility] Diastolic blood pressure 2024-04-15 14:20:00 80 mm[Hg] [facility] Heart rate 2024-04-15 14:20:00 88 /min [facility] Body temperature 2024-04-15 14:20:00 37.61 Jacquie [facility] Respiratory rate 2024-04-15 14:20:00 17 /min [facility] Body height 2024-04-15 14:20:00 180.3 cm [facility] Body weight 2024-04-15 14:20:00 104.866 kg [facility] BMI 2024-04-15 14:20:00 32.24 kg/m2 [facility] Oxygen saturation in Arterial blood by Pulse oximetry 2024-04-15 14:20:00 94 /min [facility] Systolic blood pressure 2024-04-10 14:38:00 124 mm[Hg] [facility] Diastolic blood pressure 2024-04-10 14:38:00 82 mm[Hg] [facility] Heart rate 2024-04-10 14:38:00 77 /min [facility] Body temperature 2024-04-10 14:38:00 36.22 Jacquie [facility] Respiratory rate 2024-04-10 14:38:00 17 /min [facility] Body height 2024-04-10 14:38:00 180.3 cm [facility] Body weight 2024-04-10 14:38:00 105.915 kg [facility] BMI 2024-04-10 14:38:00 32.57 kg/m2 [facility] Oxygen saturation in Arterial blood by Pulse oximetry 2024-04-10 14:38:00 97 /min [facility] Systolic blood pressure 2024-03-28 13:58:00 127 mm[Hg] [facility] Diastolic blood pressure 2024-03-28 13:58:00 83 mm[Hg] [facility] Heart rate 2024-03-28 13:58:00 71 /min [facility] Body temperature 2024-03-28 13:58:00 36.72 Jacquie [facility] Respiratory rate 2024-03-28 13:58:00 19 /min [facility] Body height 2024-03-28 13:58:00 180.3 cm [facility] weight 2024-03-28 13:58:00 107.049 kg [facility] BMI 2024-03-28 13:58:00 32.92 kg/m2 [facility] Oxygen saturation in Arterial blood by Pulse oximetry 2024-03-28 13:58:00 98 /min [facility] Body weight 2022-11-08 18:41:00 94.212 kg [facility] BMI 2022-11-08 18:41:00 28.97 kg/m2 [facility] Oxygen saturation in Arterial blood by Pulse oximetry 2022-11-08 18:41:00 98 /min [facility] Systolic blood pressure 2022-11-08 18:41:00 126 mm[Hg] [facility] Diastolic blood pressure 2022-11-08 18:41:00 86 mm[Hg] [facility] Heart rate 2022-11-08 18:41:00 91 /min [facility] Body temperature 2022-11-08 18:41:00 36.78 Jacquie [facility] Respiratory rate 2022-11-08 18:41:00 17 /min [facility] Body height 2022-11-08 18:41:00 180.3 cm [facility] Systolic blood pressure 2022-06-18 14:28:00 127 mm[Hg] [facility] Diastolic blood pressure 2022-06-18 14:28:00 80 mm[Hg] [facility] Heart rate 2022-06-18 14:28:00 125 /min [facility] Body temperature 2022-06-18 14:28:00 38.89 Jacquie [facility] Body height 2022-06-18 14:28:00 180.3 cm [facility] Body weight 2022-06-18 14:28:00 104.327 kg [facility] BMI 2022-06-18 14:28:00 32.08 kg/m2 [facility] Oxygen saturation in Arterial blood by Pulse oximetry 2022-06-18 14:28:00 98 /min [facility] Systolic blood pressure 2021-06-12 18:40:00 133 mm[Hg] [facility] Diastolic blood pressure 2021-06-12 18:40:00 84 mm[Hg] [facility] Heart rate 2021-06-12 18:40:00 69 /min [facility] Body temperature 2021-06-12 18:40:00 37.06 Jacquie [facility] Body height 2021-06-12 18:40:00 180.3 cm [facility] Body weight 2021-06-12 18:40:00 104.327 kg [facility] BMI 2021-06-12 18:40:00 32.08 kg/m2 [facility] Oxygen saturation in Arterial blood by Pulse oximetry 2021-06-12 18:40:00 99 /min Tinnie o f [facility] Procedures Procedure Date / Time Performed Performing Clinicia n Source POCT MOLECULAR FLU 2024-12-13 20:43:00 Unknown, Attend ing [facility] SLEEP STUDY DATA REPORT 2024-05-15 19:03:02 Nelly Damon [facility] SLEEP LAB RESULTS 2024-05-15 19:02:07 Nelly Damon [facility] XR CHEST 2 VW 2024-04-15 14:44:23 Aj Puga [facility] POCT MOLECULAR STREP 2024-04-15 14:25:00 Unknown, Attmeghan leigh [facility] POCT SARS-COV-2 ANTIGEN (BINAX NOW) 2024-04-15 14:17:00 Aj Puga [facility] POCT MOLECULAR FLU 2022-06-18 14:40:00 Aj Puga [facility] CONSENT/REFUSAL FOR DIAGNOSIS AND TREATMENT 2022-06-18 14:15:57 Doctor Unassigned, [place] [facility] Encounters Start Date/Time End Date/Time Encounter Type Admission Type Attending [facility] Care Department Encounter ID Source 2024-05-28 09:42:00 Outpatient Lita KATZ [facility] [id number] [facility] 2024-12-13 15:40:00 2024-12-13 16:00:00 Urgent Care Luke Givens Unknown, [facility]ending [facility] 1.2.840.114 350.1.13.10 4.2.7.2.686 [id number] [facility] 2024-12-13 15:40:00 2024-12-13 15:40:00 Outpatient LUKE DAVILA [facility] [id number] [facility] 2024-05-15 00:00:00 2024-11-03 07:03:54 Orders Only Nelly Damon [facility] ([facility] 1.2.840.114 350.1.13.10 4.2.7.2.686 [id number] [facility] 2024-05-15 00:00:00 2024-11-03 07:03:42 Orders Only Nelly Damon [facility] ([facility] 1.2.840.114 350.1.13.10 4.2.7.2.686 [id number] [facility] 2024-08-21 00:00:00 2024-08-21 16:28:44 Refill Nelly Damon [facility] 1.2.840.114 350.1.13.10 4.2.7.2.686 [id number] [facility] 2024-06-28 00:00:00 2024-08-04 18:27:02 Patient Secure Msg Nelly Damon [facility] 1.2.840.114 350.1.13.10 4.2.7.2.686 [id number] [facility] 2024-07-20 00:00:00 2024-07-20 09:38:41 Refill Nelly Damon [facility] 1.2.840.114 350.1.13.10 4.2.7.2.686 [id number] [facility] 2024-07-04 00:00:00 2024-07-04 15:30:40 Telephone Arnaud Coulter [facility] 1.2.840.114 350.1.13.10 4.2.7.2.686 [id number] [facility] 2024-07-04 15:00:00 2024-07-04 15:30:00 Office Visit Arnaud Coulter [facility] 1.2.840.114 350.1.13.10 4.2.7.2.686 [id number] [facility] 2024-07-04 15:00:00 2024-07-04 15:00:00 Outpatient R ARNAUD COULTER STRAHIL [facility] [id number] [facility] 2024-06-05 00:00:00 2024-06-05 15:52:36 Telephone Gavin Nelly Farah [facility] 1.2.840.114 350.1.13.10 4.2.7.2.686 [id number] [facility] 2024-05-24 00:00:00 2024-05-28 14:21:17 Patient Secure Msg GavinNelly parmar [facility] 1.2.840.114 350.1.13.10 4.2.7.2.686 [id number] [facility] 2024-05-25 00:00:00 2024-05-25 16:02:06 Telephone Obdulia Damonmeghan Farah [facility] 1.2.840.114 350.1.13.10 4.2.7.2.686 [id number] [facility] 2024-05-16 00:00:00 2024-05-16 09:20:36 Telephone Gavin Nelly Farah [facility] 1.2.840.114 350.1.13.10 4.2.7.2.686 [id number] [facility] 2024-05-10 15:00:00 2024-05-10 15:15:00 Audio Installer Visit [facility] Arnaud Coulter [facility] 1.840.114 350.1.13.10 4.2.7.2.686 [id number] [facility] 2024-05-10 15:00:00 2024-05-10 15:00:00 Outpatient R ARNAUD COULTER STRANCIsra [facility] [id number] [facility] 2024-04-19 09:30:00 2024-04-19 10:00:22 Outpatient R NELLY DAMON [facility] [id number] [facility] 2024-04-19 09:30:00 2024-04-19 10:00:22 Office Visit Nelly Damon [facility] 1.840.114 350.1.13.10 4.2.7.2.686 [id number] [facility] 2024-04-15 09:30:05 2024-04-15 23:59:00 Outpatient R AJ PUGA [facility] [id number] [facility] 2024-04-15 09:30:05 2024-04-15 23:59:00 Hospital Encounter Aj [facility] 1.840.114 350.1.13.10 4.2.7.2.686 [id number] [facility] 2024-04-15 09:20:00 2024-04-15 09:51:36 Urgent Care Aj Puga, Attending [facility] 1..840.114 350.1.13.10 4.2.7.2.686 [id number] [facility] 2024-04-10 09:20:00 2024-04-10 09:40:00 Urgent Care Edita Shaffer Unknown, Attending [facility] 1.2.840.114 350.1.13.10 4.2.7.2.686 [id number] [facility] 2024-04-10 09:20:00 2024-04-10 09:20:00 Outpatient R SHAFFERDAVID PHILLIPKASEY [facility] [id number] [facility] 2024-03-29 00:00:00 2024-03-29 16:06:27 Patient Secure Msg Doctor Unassigned, [place] [facility] 1.2.840.114 350.1.13.10 4.2.7.2.686 [id number] [facility] 2024-03-29 14:30:00 2024-03-29 14:30:00 Outpatient R [facility] [id number] [facility] 2024-03-29 00:00:00 2024-03-29 07:56:05 Telephone Nelly Damon [facility] 1.2.840.114 350.1.13.10 4.2.7.2.686 [id number] [facility] 2024-03-28 10:00:00 2024-03-28 10:15:00 Audio Installer Visit Lab, Ang - Nelly Brock Gagan [facility] 1.2.840.114 350.1.13.10 4.2.7.2.686 [id number] [facility] 2024-03-28 10:00:00 2024-03-28 09:34:42 Outpatient R NELLY DAMON [facility] [id number] [facility] 2024-03-28 09:00:00 2024-03-28 09:20:32 Office Visit Nelly Damon [facility] 1.2.840.114 350.1.13.10 4.2.7.2.686 [id number] [facility] 2023-12-12 11:40:00 2023-12-12 11:56:55 Outpatient R EDITA SHAFFER [facility] [id number] [facility] 2022-11-08 12:20:00 2022-11-08 12:40:00 Urgent Care David Shafferbreakimberley Unknown, Attending [facility] 1..840.114 350.1.13.10 4.2.7.2.686 [id number] [facility] 2022-11-08 12:20:00 2022-11-08 12:20:00 Outpatient R EDITA SHAFFER [facility] [id number] [facility] 2022-06-19 00:00:00 2022-06-19 00:00:00 Letter (Out) Alice Corbin [facility] 1..840.114 350.1.13.10 4.2.7.2.686 [id number] [facility] 2022-06-18 09:20:00 2022-06-18 09:58:39 Outpatient AJ MELLO [facility] [id number] [facility] 2022-06-18 09:20:00 2022-06-18 09:40:00 Urgent Care Freida Buckley [facility] 1.2.840.114 350.1.13.10 4.2.7.2.686 [id number] [facility] 2022-06-18 00:00:00 2022-06-18 00:00:00 Orders Only Doctor Unassigned, [place] [facility] 1.2.840.114 350.1.13.10 4.2.7.2.686 [id number] [facility] 2021-06-12 13:24:05 2021-06-12 14:19:55 Office Visit Nelly Damon [facility] 1.2.840.114 350.1.13.10 4.2.7.2.686 [id number] [facility] 2021-06-12 13:30:00 2021-06-12 13:30:00 Outpatient R NELLY DAMON [facility] [id number] [facility] 2020-12-18 13:00:00 2020-12-18 13:00:00 Outpatient NELLY TOBIN [facility] [id number] [facility] 2019-01-04 16:40:00 2019-01-04 16:40:00 [facility] [id number] Results Test Description Test Time Test Comments Results Result Co mments Source [facility] SARS-COV-2 ANTIGEN (BINAX NOW)2024-04-15 14:33:00* Test Item Value Reference Range Interpretation Comme nts POCT SARS-COV-2 ANTIGEN (test code = 67105-8) Not Detected Not Detected, See Comment On board controls acceptable with C Line (test code = 3574) Yes Lab Interpretation (test code = 76619-2) Normal [facility] MOLECULAR [id number] 14:32:52* Test Item Value Reference Range Interpretation Comme nts POCT Molecular Strep (test c ode = 52369-7) Negative Negative Lab Interpretation (test cod e = 17282-5) Normal [facility] MOLECULAR [id number] 14:51:39* Test Item Value Reference Range Interpretation Comme nts POCT Molecular FluA (test co de = 80803-0) Negative Negative POCT Molecular FluB (test co de = 40454-0) Negative Negative Lab Interpretation (test cod e = 26259-2) Normal [facility] Notes Date/Time Note Provider Source 2024-08-21 16:21:17 Spoke with patient, he still has a 30 day supply of fenofibrate and he will talk to his about scheduling appointment, they my be changing providers. EKEEPING DIRECTOR Gladis Noriega [facility] 2024-07-20 09:38:03 Images from the original note were not included. Notes: 03/29/24 Last Refilled: [facility] [address] [place] [address] Recent Visits Date Type Provider Dept 04/19/24 [...] ALISE Platt Last refill: 06/24/2024 Rx #: [id number] Antilipid: Fibric Acid Derivatives Bvemeq7107/20/2024 05:54 AM Protocol Details Valid encounter within last 12 months AST in normal range and within 360 days ALT in normal range and within 360 days HDL within 360 days LDL within 360 days Total Cholesterol within 360 days Triglycerides within 360 days To be filled at: [facility] [address] [place] [address] Terese Montoya [facility] 2024-07-04 15:47:49 New APAP orders submitted via [place] to [place] Patient. All forms scanned into chart. If any questions on status order please contact [facility] at [phone]. Shayy Alvarez [facility] 2024-07-04 15:29:46 New APAP at 5-15 cm H2O SLEEP MEDICINE-PHYSICIAN/I [facility] 2024-06-29 14:38:04 Noted Gladis Noriega [facility] 2024-06-05 15:49:00 Patient signed Medical release forms to have fax[facility] to [facility] P: [phone] F:[phone] Faxed to HIM to retreive those records and have it faxed. [facility] 2024-05-25 15:59:39 Images from the original note were not included. [facility] medical records request form.// placed in providers basket. Freida [facility] 2024-05-24 20:32:44 Recommend patient signing a record release from our office to send sleep apnea testing to his provider at the [facility]. He can complete with [facility] at any time M-F. [facility] 2024-03-28 10:00:00 Images from the original note were not included. Venipuncture collection performed by clean technique on the left anticubitus. Total of 1 attempts were made. Slight pressure and a bandage/dressing were applied to the site(s). The patient experienced no complications. The following specimens were processed according to instructions and sent to [facility] laboratories per lab order on 03/28/2024 : LT BLUE SST 2 RED LAV 2 PPT DK GREEN (LiHep) DK GREEN (SodH) OBANDO DK BLUE (K2) DK BLUE (S) ACD Blood Culture NIPT/[facility]D [facility]
[2024-12-21] MEDS ORDERED: ONDANSETRON 4 MG/2 ML VIAL ONE ×2 (11:11→13:40)
[2024-12-21] MEDS ORDERED: NA CHLORIDE 0.9% 100 ML ONE (11:11)
[2024-12-21] MEDS ORDERED: MORPHINE 4 MG/ML SYR ONE (11:11)
[2024-12-21] MEDS ORDERED: PIPERACIL/TAZO 3.375 GM VIAL IV ONE (11:11)
[2024-12-21 11:22] LABS: Absolute Eosinophils 0.1 K/uL (0-0.5); Absolute Lymphocytes (CBC) 1.2 K/uL (0.7-4.9); Absolute Monocytes 0.7 K/uL (0.1-1.3); Absolute Neutrophil 9.7 K/uL (1.8-8.0); Basophils % 0.4 % (0-1.3); Eosinophils % 0.6 % (0-4.4); Hemoglobin 12.7 g/dL (13.6-17.9); Lymphocytes % 10.5 % (15.3-44.8); MCH 30.1 pg (27.0-35.0); MCHC 35.3 g/dL (32.0-36.0); MCV 85.2 fL (80-100); MPV 9.3 fL (7.6-11.3); Monocytes % 6.3 % (3.3-12.3); Neutrophils % 82.2 % (41.7-73.7); Platelets 267 thou/uL (152-406); RBC Red Blood Cell Count 4.23 M/uL (4.33-5.43); Red Cell Distribution Width 12.7 % (12.1-15.2)
[2024-12-21 11:32] LABS: PT Prothrombin Time 14.6 SECONDS (10-13.0); PTT, Activated Partial Thromb 32.6 SECONDS (27.2-37.4); Protime INR 1.3
[2024-12-21 11:33] LABS: Anion Gap 5.4 mEq/L (5.0-15.0); Potassium 3.4 mEq/L (3.5-5.1)
--- NOTE | 2024-12-21 12:16 | RAD REPORT ---
EXAM: CT pelvis with contrast HISTORY: eval for perirectal abscess/proctitis COMPARISON: None TECHNIQUE: Multiple contiguous axial images were obtained and a CT of the pelvis with IV contrast. Sa gittal and coronal reformats were performed. One or more of the following dose reduction techniques were used: Automated exposure control, adjustment of the mA and/or kV according to patient size, and/ or iterative reconstruction. FINDINGS: The visualized intrapelvic structures are unremarkable. There is 4.2 x 3.2 cm perirectal abscess the right noted. No pelvic fractures are seen. No significant degenerative changes are seen. No additional areas of abnormal enhancement. IMPRESSION: 4.2 cm right-sided perirectal abscess.
--- NOTE | 2024-12-21 12:38 | EDPHYS ---
Physician Documentation [facility] Name: Reyes Miles Age: 34 yrs Sex: Male : 1990 Arrival Date: 12/21/2024 Time: 10:18 Bed 4 Private MD: ED Physician Jose Miranda HPI: 12/21 11:00 This 34 yrs old Male presents to ER via Ambulatory with complaints of Rectal Pain. rn 11:00 The patient presents to the emergency department with pain in the rectal area. Onset: rn The symptoms/episode began/occurred 3 day(s) ago. Context: the patient has no known special context relating to the rectal area complaint(s). Modifying factors: The symptoms are alleviated by nothing, The symptoms are aggravated by bowel movement, movement, sitting position. The patient has not experienced similar symptoms in the past. Patient reports perianal pain for 4 days. No fever or chills. Difficulty with bowel movements and sitting position. No trauma.. Historical: - Allergies: 10:50 No Known Allergies; jl7 - Home Meds: 10:50 fenofibrate oral [Active]; jl7 - PMHx: 10:50 Elevated Triglycerides; jl7 - PSHx: 10:50 None; jl7 - Immunization history:: Adult Immunizations unknown, Adult Immunizations unknown. - Infectious Disease History:: Denies. Denies. - Social history:: Smoking status: Patient denies any tobacco usage or history of. - Family history:: not pertinent. - Hospitalizations: : No recent hospitalization is reported. ROS: 11:00 Constitutional: Negative for fever, chills, and weight loss, Cardiovascular: Negative rn for chest pain, palpitations, and edema, Respiratory: Negative for shortness of breath, cough, wheezing, and pleuritic chest pain, Abdomen/GI: Positive for perianal pain MS/Extremity: Negative for injury and deformity, Skin: Negative for injury, rash, and discoloration, Neuro: Negative for headache, weakness, numbness, tingling, and seizure, Exam: 11:00 Constitutional: This is a well developed, well nourished patient who is awake, alert, rn appears uncomfortable, laying on his side Cardiovascular: Regular rate and rhythm. No pulse deficits. Respiratory: No increased work of breathing, no retractions or nasal flaring. Abdomen/GI: Soft, non-tender, moderate size induration and fluctuance with tenderness to palpation perianal region. No thrombosed hemorrhoids identified. MS/ Extremity: Pulses equal, no cyanosis. Neuro: Awake and alert, GCS 15 Vital Signs: 10:48 BP 136 / 75; Pulse 75; Resp 17; Temp 98.2; Pulse Ox 97% ; Weight 106.59 kg; Height 5 jl7 ft. 11 in. ; Pain 3/10; 11:29 BP 140 / 84; Pulse 68; Resp 18; Pulse Ox 96% on R/A; ph 12:18 BP 141 / 81; Pulse 74; Resp 18; Pulse Ox 99% on R/A; ph 13:17 BP 113 / 52; Pulse 69; Resp 18; Temp 98.1; Pulse Ox 100% on R/A; ph 10:48 Body Mass Index 32.78 (106.59 kg, 180.34 cm) jl7 10:48 Pain Scale: Adult jl7 MDM: 10:21 Medical Screening Exam initiated rn 12:34 Differential diagnosis: abscess, Perirectal abscess. Data reviewed: vital signs, nurses rn notes, lab test result(s), radiologic studies, CT scan, and as a result, I will admit patient. Consideration of Admission/Observation Patient was admitted/placed on observation. Escalation of care including admission/observation considered. Management of patient was discussed with the following: Bottle Packer: Discussed case with Dr. Rai, will take to the OR for perirectal abscess.. Counseling: I had a detailed discussion with the patient and/or guardian regarding the historical points, exam findings, and any diagnostic results supporting the discharge/admit diagnosis, lab results, radiology results, the need for further work-up and treatment in the hospital. Response to treatment: the patient's symptoms have mildly improved after treatment. 12/21 10:58 Order name: CBC with Diff; Complete Time: 11:59 rn 12/21 10:58 Order name: Basic Metabolic Panel; Complete Time: 11: rn 12/21 10:58 Order name: Protime (+inr); Complete Time: 11:59 rn 12/21 10:58 Order name: Ptt, Activated; Complete Time: 11:59 rn 12/21 10:58 Order name: CT Pelvis w cont; Complete Time: 12:28 rn 12/21 10:58 Order name: IV Start; Complete Time: 11:33 rn Administered Medications: 11:29 Drug: Piperacillin-Tazobactam IVPB 3.375 grams IVPB once over 60 mins; (mix in NS 100 ph mL) Route: IVPB; Infused Over: 60 mins; Site: left antecubital; 12:17 Follow up: Response: No adverse reaction; IV Status: Completed infusion ph 11:29 Drug: morphine IVP or IV 4 mg IVP once over 4 mins Route: IVP; Infused Over: 4 mins; ph Site: left antecubital; 12:17 Follow up: Response: No adverse reaction; Pain is decreased ph 11:29 Drug: Ondansetron IVP 4 mg IVP once; over 2 minutes Route: IVP; Site: left antecubital; ph 12:17 Follow up: Response: No adverse reaction ph Disposition Summary: 12/21/24 12:36 Hospitalization Ordered Notes: Hospitalization Status: Inpatient Admission rn Location: Telemetry/[facility] (Inpatient) rn Condition: Stable rn Problem: new rn Symptoms: have improved rn Bed/Room Type: Standard rn Room Assignment: rn Provider: Johnny Brock(12/21/24 12:59) rn Diagnosis - Anorectal abscess rn Forms: - Medication Reconciliation Form rn - SBAR form rn - Leadership Thank You Letter rn Signatures: Dispatcher [employer] Jose Drew MD MD rn Hall, Patricia, RN RN ph Leal, Jahala, RN RN jl7 Corrections: (The following items were deleted from the chart) 12:59 12:36 Abdon Rai rn rn
--- NOTE | 2024-12-21 12:38 | ER ---
Nurse's Notes [facility] Name: Reyes Miles Age: 34 yrs Sex: Male : 1990 Arrival Date: 12/21/2024 Time: 10:18 Bed 4 Private MD: Diagnosis: Anorectal abscess Presentation: 12/21 10:48 Chief complaint: Patient states: Possible hemorrhoid. Coronavirus screen: At this time, jl7 the client does not indicate any symptoms associated with coronavirus-19. Ebola Screen: No symptoms or risks identified at this time. Initial Sepsis Screen: Does the patient meet any 2 criteria? No. Patient's initial sepsis screen is negative. Does the patient have a suspected source of infection? No. Patient's initial sepsis screen is negative. Risk Assessment: Do you want to hurt yourself or someone else? Patient reports no desire to harm self or others. Onset of symptoms was December 18, 2024. 10:48 Method Of Arrival: Ambulatory jl7 10:48 Acuity: ROBIN 3 jl7 Triage Assessment: 10:50 General: Appears in no apparent distress. uncomfortable, Behavior is calm, cooperative, jl7 appropriate for age. Pain: Complains of pain in rectal pain Pain currently is 3 out of 10 on a pain scale. at worst was 8 out of 10 on a pain scale. Historical: - Allergies: 10:50 No Known Allergies; jl7 - Home Meds: 10:50 fenofibrate oral [Active]; jl7 - PMHx: 10:50 Elevated Triglycerides; jl7 - PSHx: 10:50 None; jl7 - Immunization history:: Adult Immunizations unknown, Adult Immunizations unknown. - Infectious Disease History:: Denies. Denies. - Social history:: Smoking status: Patient denies any tobacco usage or history of. - Family history:: not pertinent. - Hospitalizations: : No recent hospitalization is reported. Screenin:51 [facility] ED Fall Risk Assessment (Adult) History of falling in the last 3 months, ph including since admission No falls in past 3 months (0 pts) Confusion or Disorientation No (0 pts) Intoxicated or Sedated No (0 pts) Impaired Gait No (0 pts) Mobility Assist Device Used No (0 pt) Altered Elimination No (0 pt) Score/Fall Risk Level 0 - 2 = Low Risk Oriented to surroundings, Maintained a safe environment, Hourly rounding (assess needs \T\ fall precautionary measures) done. Abuse screen: Denies threats or abuse. Has been threatened or abused. Nutritional screening: No deficits noted. Tuberculosis screening: No symptoms or risk factors identified. Assessment: 11:28 General: Appears in no apparent distress. comfortable, well groomed, Behavior is calm, ph cooperative, appropriate for age. Pain: Complains of pain in anus. Neuro: Level of Consciousness is awake, alert, obeys commands, Oriented to person, place, time, situation. Cardiovascular: Capillary refill < 3 seconds in bilateral fingers Patient's skin is warm and dry. Respiratory: Airway is patent Respiratory effort is even, unlabored. Derm: Skin is pink, warm \T\ dry. 12:50 Reassessment: Dr Rai at bedside to speak w/ pt. ph 13:16 Reassessment: Patient appears in no apparent distress at this time. Patient and/or ph family updated on plan of care and expected duration. Pain level reassessed. Patient is alert, oriented x 3, equal unlabored respirations, skin warm/dry/pink. OR nurse at bedside, pt taken to OR. Vital Signs: 10:48 BP 136 / 75; Pulse 75; Resp 17; Temp 98.2; Pulse Ox 97% ; Weight 106.59 kg; Height 5 jl7 ft. 11 in. ; Pain 3/10; 11:29 BP 140 / 84; Pulse 68; Resp 18; Pulse Ox 96% on R/A; ph 12:18 BP 141 / 81; Pulse 74; Resp 18; Pulse Ox 99% on R/A; ph 13:17 BP 113 / 52; Pulse 69; Resp 18; Temp 98.1; Pulse Ox 100% on R/A; ph 10:48 Body Mass Index 32.78 (106.59 kg, 180.34 cm) jl7 10:48 Pain Scale: Adult jl7 ED Course: 10:21 Patient arrived in ED. al6 10:21 Jose Miranda MD is Attending Physician. rn 10:36 Zahraa Montejo, ANN is Primary Nurse. ph 10:50 Triage completed. jl7 10:50 Arm band placed on Patient placed in an exam room, on a stretcher. ph 10:51 Patient has correct armband on for positive identification. Bed in low position. Call ph light in reach. Side rails up X 1. Pulse ox on. NIBP on. Door closed. Noise minimized. Warm blanket given. 11:09 Initial lab(s) drawn, by me, sent to lab. Inserted saline lock: 22 gauge in left ph antecubital area, using aseptic technique. Blood collected. Flushed with 10 mL NS. 11:[address] via stretcher. ph 11:57 CT Pelvis w cont In Process Unspecified. EDMS 12:35 Abdon Rai MD is Hospitalizing Provider. rn 12:59 Johnny Brock PA is Hospitalizing Provider. rn 13:17 No provider procedures requiring assistance completed. Patient admitted, IV remains in ph place. Administered Medications: 11:29 Drug: Piperacillin-Tazobactam IVPB 3.375 grams IVPB once over 60 mins; (mix in NS 100 ph mL) Route: IVPB; Infused Over: 60 mins; Site: left antecubital; 12:17 Follow up: Response: No adverse reaction; IV Status: Completed infusion ph 11:29 Drug: morphine IVP or IV 4 mg IVP once over 4 mins Route: IVP; Infused Over: 4 mins; ph Site: left antecubital; 12:17 Follow up: Response: No adverse reaction; Pain is decreased ph 11:29 Drug: Ondansetron IVP 4 mg IVP once; over 2 minutes Route: IVP; Site: left antecubital; ph 12:17 Follow up: Response: No adverse reaction ph Medication: 10:51 VIS not applicable for this client. ph Outcome: 12:36 Decision to Hospitalize by Provider. rn 13:18 Admitted to OR accompanied by nurse, family with patient, via wheelchair, with chart, ph 13:18 Condition: stable 13:18 Instructed on the need for admit, 13:26 Patient left the ED. ph Signatures: Dispatcher [employer] EDMS Jose Miranda MD MD rn Hall, Patricia, RN RN ph Leal, Jahala, RN RN Meche Clinton
[2024-12-21] MEDS: Ringers Lactate 1,000 ML IV ONE ×2 (13:30→15:30)
[2024-12-21] MEDS ORDERED: dexAMETHasone 10 MG/ML VIAL ONE (13:40)
[2024-12-21] MEDS ORDERED: KETOROLAC 30 MG/ML INJ ONE (13:40)
[2024-12-21] MEDS ORDERED: LIDOCAINE 2% MPF 5 ML VIAL ONE (13:40)
[2024-12-21] MEDS ORDERED: propofoL 200 MG/20 ML VIAL IV ONE (13:40)
[2024-12-21] MEDS ORDERED: MIDAZOLAM HCL 2 MG/2 ML INJ ONE (13:41)
[2024-12-21] MEDS ORDERED: FENTANYL CITR 100 MCG/2 ML ONE (13:41)
[2024-12-21] MEDS ORDERED: ROCURONIUM 50 MG/5 ML VIAL IV ONE (13:41)
[2024-12-21] MEDS ORDERED: KETAMINE HCL IN 0.9 % NACL 50 MG/5 ML SYRINGE IV ONE (13:57)
[2024-12-21] MEDS ORDERED: POTASSIUM CL 40 MEQ in NA CHLORIDE 0.9% 500 ML IV SCH (14:00)
[2024-12-21] MEDS ORDERED: ACETAMINOPHEN 500 MG TAB PO PRN (14:03)
[2024-12-21] MEDS ORDERED: ONDANSETRON 4 MG/2 ML VIAL IV PRN (14:03)
--- NOTE | 2024-12-21 14:16 | P.HP ---
Certification for Inpatient Patient admitted to: Inpatient With expected LOS: >2 Midnights Patient will require the following post-hospital care: None Practitioner: I am a practitioner with admitting privileges, knowledge of patient current condition, hospital course, and medical plan of care. Services: Services provided to patient in accordance with Admission requirements found in Title 42 Section 412.3 of the Code of Federal Regulations Patient History Date of Service: 12/21/24 Reason for admission: Perirectal abscess History of Present Illness: 34-year-old patient presented with rectal pain for the last 3 to 4 days, no drainage, he was found to have perirectal abscess, given IV antibiotics, surgery team was consulted, plan is to take him to the operating room today. He had flu infection 3 weeks back approximately, he is still having some cough. He had fever at the time of flu infection but no fever after that. Other than this he denies any other acute complaints. No headache or blackouts. No double vision or blurry vision. No chest pain or shortness of breath. No nausea or vomiting. No abdominal pain other than rectal pain. No constipation or diarrhea. No blood in the urine or stool. No lower extremity edema. No joint pains. No recent change in the weight. Review of systems: All other 10 point review of systems are negative other than as mentioned above. Allergies and medications: Reviewed, as per med rec EMR. Past medical history: Hypertriglyceridemia Past surgical history: None Social history: No smoking or drugs. Occasional alcohol use. Family history: No family history of [place]. Dad had history of CVA Physical examination: Vital signs: Reviewed, as per EMR. General appearance: Alert and comfortable HEENT: Extraocular movements intact, oral mucosa moist. CVS: Normal S1-S2 Lungs: Clear to auscultation bilaterally Abdomen: Soft, bowel sounds present, no tenderness in anterior abdomen. Rectal exam deferred Extremities: No lower extremity edema ENFORCEMENT OFFICER: Moves all 4 extremities, no obvious focal deficits Musculoskeletal: No obvious joint swelling or tenderness Physical Examination - Vital Signs Temperature: 98.1 F Blood Pressure: 113/52 Pulse: 69 Respirations: 18 - Studies Laboratory Data (last 24 hrs) 12/21/24 12/21/24 12/21/24 11:05 11:05 11:05 WBC 11.90 H Hgb 12.7 L Hct 36.0 L Plt Count 267 PT 14.6 H INR 1.30 APTT 32.6 Sodium 138 Potassium 3.4 L BUN 12 Creatinine 1.03 Glucose 114 H Assessment and Plan - Plan Assessment and plan: 1. Perirectal abscess: Will continue IV Zosyn, surgery was consulted, plan is to take him to the operating room today, will follow-up on intraoperative cultur es and adjust antibiotics accordingly. 2. Chronic anemia: Monitor closely 3. Hypokalemia: Replace and monitor 4. Hypertriglyceridemia: Continue fenofibrate 5. Obesity with BMI of 32: Follow-up with PCP, consider weight loss. 6. Obstructive sleep apnea: He does not use CPAP, I advised the patient to use CPAP. DVT prophylaxis: Lovenox CODE STATUS: He would like to be full code. I did discuss all the above plan with the patient and family at bedside, they understand and agrees with the plan. - Advance Directives Does patient have a Living Will: No Does patient have a Durable POA for Healthcare: No - Code Status/Comfort Care Code Status Assessed: Yes Code Status: Full Code
[2024-12-21] MEDS: BUPIVACAINE 0.5% PF 10 ML VIAL ONE (14:30)
[2024-12-21] MEDS: MEPERIDINE HCL 25 MG/ML SYR ONE (14:41)
--- NOTE | 2024-12-21 14:55 | P.BOP ---
Preoperative diagnosis: perirectal abscess, perianal pain Postoperative diagnosis: same Primary procedure: EUZ, anoscopy, rigid proctoscopy, I&D complex perirectal abscess Estimated blood loss: <10cc Specimen: culture Findings: as above Anesthesia: General Complications: None Drain(s): Other (iodoform) Transferred to: Recovery Room Condition: Good
--- NOTE | 2024-12-21 15:16 | OP ---
Date of Procedure: 12/21/2024 Surgeon: Abdon Rai MD Preoperative Diagnosis: Perirectal abscess. Postoperative Diagnosis: Perirectal abscess. Procedure Performed: EUA, anoscopy, proctoscopy, I and D of complex perirectal abscess about 4 cm. Anesthesia: General plus local. Complications: None. Packing: Iodoform packing. Indications: This is a case of a 34-year-old patient, who comes to us with a perirectal abscess. Th e benefits, alternatives, and risks of a perirectal abscess, I and D with EUA anoscopy, proctoscopy f ully explained, which include, but not limited to infection, bleeding, damage to adjacent structures, anesthesia complication, anal stricture, anal incontinence, CO and even . He also understands this may not relieve the symptoms. He might need more than one surgical intervention. He understood , signed a consent. Description Of Procedure: The patient was brought to the operating room, placed in supine position. Anesthesia was done without complication. The patient was placed in lithotomy position with proper protection. A time-out was called. Rectal examination was done followed by re-proctoscopy all about high as only and to about 11 cm. It is limited by a large amount of stool present. After that, we placed an anoscope with a window on the side and that allows to see this perirectal abscesses. It is exiting the dentate line on the right side. This cavity after interrogated extended into the distal part of the right buttock, so we will make a small incision in that area where it was starting to dr dobbs, protect the sphincter and then proceeded to drain the abscess. Cultures were obtained. Irrigat ion was done. Then, we packed the area with iodoform quarter of an inch. Patient tolerated the proc edure well. Sterile dressings were placed in that area. Sponge count and instrument counts correct. The patient was sent to recovery in stable condition. NILA/BRANDIE Voice ID: [id number] Report ID: [id number]
[2024-12-21 15:24] VITALS: O2SAT 96
--- NOTE | 2024-12-21 15:40 | CON ---
Date of Consultation: 12/21/2024 Diagnosis: Perirectal abscess. History Of Present Illness: This is the case of a 34-year-old patient who comes to us with perianal tenderness about 3-4 days in duration. Today, could not take it anymore, so he comes to the ER. Angelica gnosed on clinical and imaging with perirectal abscess and a surgical consult was obtained. He denie s any dysuria, hematochezia, or melena. Denies any trauma. Denies any recent traveling out [place]. Denies any family member sick at home. Review of Systems: Ten points otherwise unremarkable. Allergies: NONE. Medical History: Hypertriglycerides. Past Surgical History: None. Social History: He does not smoke. He does not drink alcohol. Family History: [place]. Physical Examination: Vital Signs: Reviewed. General: The patient is awake, alert. HEENT: Pupils are equal and reactive. Anicteric. Neck: Supple. Chest: Clear. Heart: S1, S2. Abdomen: Soft and depressible. No guarding or rebound. : Perineal area is tender, cannot be examined at bedside in ER, most indurated in the right side t odom the left side. Fluctuance present. Laboratory Data: Blood work shows a WBC count of 11.9, hemoglobin of 12.7, and INR is 1.3. CAT scan of the pelvis interpreted by Dr. Loco as 4.2 cm right side perirectal abscess. Assessment: This is a 34-year-old patient, comes to us with a perirectal abscess. The benefits, alt ernatives, and risks of EUA, anoscopy, proctoscopy, I and D of perirectal abscess fully explained, wh ich include, but not limited to infection, bleeding, damage to adjacent structures, anesthesia compli cation, recurrence, [place], and even . He also understands this may not relieve symptoms, he might need more than one surgical intervention. He also understands this may require wound care and long-t erm antibiotics. He understands that even though we may not find the etiology of this problem at thi s moment, in the future we may keep looking for the etiology of that abscess. HM/MODL Voice ID: [id number] Report ID: [id number]
[2024-12-21 16:56] VITALS: BMI 32.6
[2024-12-21] MEDS: PIPER TAZO 3.375 GM in NA CHLORIDE 0.9% 100 ML IV SCH (18:10)
[2024-12-21] MEDS: DOCUSATE NA 100 MG CAP PO SCH (20:58)
[2024-12-21] MEDS: NA CHLORIDE 0.9% 1,000 ML IV SCH (21:00)
[2024-12-22] MEDS: MORPHINE 2 MG/ML SYR IV PRN (03:39)
[2024-12-22 05:38] LABS: Absolute Lymphocytes (CBC) 1.3 K/uL (0.7-4.9); Absolute Monocytes 0.6 K/uL (0.1-1.3); Absolute Neutrophil 8.1 K/uL (1.8-8.0); Basophils % 0.2 % (0-1.3); Eosinophils % 0.1 % (0-4.4); Hematocrit 35.3 % (39.6-49.0); Hemoglobin 12.3 g/dL (13.6-17.9); Lymphocytes % 12.5 % (15.3-44.8); MCV 85.7 fL (80-100); MPV 9.5 fL (7.6-11.3); Monocytes % 6.2 % (3.3-12.3); Nucleated Red Blood Cells % 0.1 % (0-0); Platelets 304 thou/uL (152-406); RBC Red Blood Cell Count 4.12 M/uL (4.33-5.43); Red Cell Distribution Width 12.8 % (12.1-15.2)
[2024-12-22 05:50] LABS: Anion Gap 9.8 mEq/L (5.0-15.0); Potassium 3.8 mEq/L (3.5-5.1)
[2024-12-22] MEDS ORDERED: ENOXAPARIN 40 MG/0.4 ML SQ SCH (09:00)
--- NOTE | 2024-12-22 11:12 | P.PN ---
Subjective Date of Service: 12/22/24 Chief Complaint: Perirectal abscess Subjective: No chest pain or shortness of breath. No nausea or vomiting. No abdominal pain. No obvious bleeding. Looks comfortable in the bed. Complaining of pain in the rectal area. Objective: General appearance: Alert and comfortable CVS: Normal S1 and S2 Lungs: Clear to auscultation bilaterally Abdomen: Soft, bowel sounds present, no tenderness Extremities: No lower extremity edema Physical Examination - Vital Signs Temperature: 98.3 F Blood Pressure: 125/68 Pulse: 70 Respirations: 16 Pulse Ox (%): 95 - Studies Laboratory Data (last 24 hrs) 12/21/24 12/21/24 12/21/24 11:05 11:05 11:05 WBC 11.90 H Hgb 12.7 L Hct 36.0 L Plt Count 267 PT 14.6 H INR 1.30 APTT 32.6 Sodium 138 Potassium 3.4 L BUN 12 Creatinine 1.03 Glucose 114 H Assessment And Plan - Plan Assessment and plan: 1. Perirectal abscess: continue IV Zosyn, surgery was consulted, s/p I&D on 12/21, follow-up on intraoperative cultures and adjust antibiotics accordingly. - Adjusted Pain and bowel medications. 2. Chronic anemia: Monitor closely 3. Hypokalemia: Replaced, monitor 4. Hypertriglyceridemia: Continue fenofibrate 5. Obesity with BMI of 32: Follow-up with PCP, consider weight loss. 6. Obstructive sleep apnea: He does not use CPAP, I advised the patient to use CPAP. I did discuss all the above plan with the patient and family at bedside, they understand and agrees with the plan.
[2024-12-22] MEDS: GUAIFENESIN/DM 5 ML UCUP PO PRN (11:23)
[2024-12-22] MEDS: POLYETHYL GLY 3350 17 GM/DOSE PO SCH (12:06)
[2024-12-22] MEDS: KETOROLAC 30 MG/ML INJ IV PRN (12:06)
[2024-12-23 04:40] LABS: Absolute Eosinophils 0.1 K/uL (0-0.5); Absolute Lymphocytes (CBC) 1.8 K/uL (0.7-4.9); Absolute Monocytes 0.5 K/uL (0.1-1.3); Absolute Neutrophil 3.7 K/uL (1.8-8.0); Basophils % 0.8 % (0-1.3); Eosinophils % 1.7 % (0-4.4); Hematocrit 34.1 % (39.6-49.0); Hemoglobin 11.9 g/dL (13.6-17.9); Lymphocytes % 29.5 % (15.3-44.8); MCH 29.9 pg (27.0-35.0); MCHC 34.9 g/dL (32.0-36.0); MCV 85.7 fL (80-100); MPV 8.6 fL (7.6-11.3); Monocytes % 8.2 % (3.3-12.3); Neutrophils % 59.8 % (41.7-73.7); Nucleated Red Blood Cells % 0.1 % (0-0); Platelets 293 thou/uL (152-406); RBC Red Blood Cell Count 3.97 M/uL (4.33-5.43); Red Cell Distribution Width 13.1 % (12.1-15.2)
[2024-12-23] MEDS: POTASSIUM CL SA 10 MEQ TAB PO SCH (08:43)
[2024-12-23] MEDS: HYDROCODONE/APAP 5/325 MG TAB PO PRN (08:53)
--- NOTE | 2024-12-23 10:45 | P.PN ---
Subjective Date of Service: 12/23/24 Chief Complaint: Perirectal abscess Subjective: No chest pain or shortness of breath. No nausea or vomiting. No abdominal pain. No obvious bleeding. Looks comfortable in the bed. pain in the rectal area better today. Had BM. good oral intake. Objective: General appearance: Alert and comfortable CVS: Normal S1 and S2 Lungs: Clear to auscultation bilaterally Abdomen: Soft, bowel sounds present, no tenderness Extremities: No lower extremity edema Physical Examination - Vital Signs Temperature: 97.7 F Blood Pressure: 106/55 Pulse: 61 Respirations: 18 Pulse Ox (%): 97 Assessment And Plan - Plan Assessment and plan: 1. Perirectal abscess: on IV Zosyn, surgery was consulted, s/p I&D on 12/21 -Cultures grew E. coli, sensitive to ampicillin, stop Zosyn, start Augmentin - cont Pain and bowel medications. 2. Chronic anemia: Monitor closely 3. Hypokalemia: Replaced, monitor 4. Hypertriglyceridemia: Continue fenofibrate 5. Obesity with BMI of 32: Follow-up with PCP, consider weight loss. 6. Obstructive sleep apnea: He does not use CPAP, I advised the patient to use CPAP. I did discuss all the above plan with the patient and family at bedside, they understand and agrees with the plan. DC home today or tomorrow when cleared by surgery.
[2024-12-23] MEDS: AMOX/K CLAV 875 MG TAB PO SCH (12:02)
[2024-12-23 16:48] VITALS: BP 132/74; TEMP 97.9
--- NOTE | 2024-12-23 19:58 | P.DS ---
Admission Date: 12/21/24 Discharge Date: 12/23/24 Disposition: ROUTINE DISCHARGE Discharge Condition: FAIR Reason for Admission: Perirectal abscess Brief History of Present Illness: 34-year-old patient presented with rectal pain for the last 3 to 4 days, no drainage, he was found to have perirectal abscess, given IV antibiotics, surgery team was consulted, plan is to take him to the operating room today. He had flu infection 3 weeks back approximately, he is still having some cough. He had fever at the time of flu infection but no fever after that. Hospital Course: 1. Perirectal abscess: on IV Zosyn, surgery was consulted, s/p I&D on 12/21 -Cultures grew E. coli, sensitive to ampicillin, stop Zosyn, start Augmentin Pain controlled well 2. Chronic anemia: Monitored closely 3. Hypokalemia: Replaced 4. Hypertriglyceridemia: Continue fenofibrate 5. Obesity with BMI of 32: Follow-up with PCP, consider weight loss. 6. Obstructive sleep apnea: Follow-up for sleep study Discussed with surgery Recommended DC home with outpatient follow-up with surgery in 2 weeks time Will continue pain management and antibiotics along with bowel regimen Patient responded well to treatment and has been discharged home today in stable condition with and advised to follow-up with PCP in 1 week and also with surgery in 1 to 2 weeks Vital Signs/Physical Exam: Temp Pulse Resp BP Pulse Ox 97.9 F 57 18 132/74 97 12/23/24 16:00 12/23/24 16:00 12/23/24 17:48 12/23/24 16:00 12/23/24 16:00 General: Alert, In no apparent distress, Oriented x3 HEENT: Atraumatic, Normocephalic Neck: Supple Respiratory: Clear to auscultation bilaterally, Normal air movement Cardiovascular: No edema, Regular rate/rhythm, Normal S1 S2 Capillary refill: <2 Seconds Gastrointestinal: Soft and benign, W/out hepatosplenomegaly Musculoskeletal: No clubbing Neurological: Other (Alert awake nonfocal) Laboratory Data at Discharge: WBC 6.20 thou/uL (4.3-10.9) 12/23/24 04:16 Hgb 11.9 g/dL (13.6-17.9) L 12/23/24 04:16 Hct 34.1 % (39.6-49.0) L 12/23/24 04:16 Plt Count 293 thou/uL (152-406) 12/23/24 04:16 PT 14.6 SECONDS (10-13.0) H 12/21/24 11:05 INR 1.30 12/21/24 11:05 APTT 32.6 SECONDS (27.2-37.4) 12/21/24 11:05 Sodium 140 mEq/L (136-145) 12/23/24 04:16 Potassium 3.0 mEq/L (3.5-5.1) L D 12/23/24 04:16 BUN 14 mg/dL (7-18) 12/23/24 04:16 Creatinine 0.85 mg/dL (0.70-1.30) 12/23/24 04:16 Glucose 127 mg/dL (74-106) H 12/23/24 04:16 Home Medications: Fenofibrate 40 mg PO DAILY 12/21/24 Amox/Clavulanate [Augmentin 875-125 Tab*] 875 mg PO BID #20 tab 12/23/24 Docusate [Colace Cap*] 100 mg PO BID #20 cap 12/23/24 Ketorolac [Toradol] 10 mg FT Q4H PRN #30 tab 12/23/24 Polyethylene Glycol 3350 [Miralax] 17 gm PO DAILY 6PM #20 12/23/24 New Medications: Amox/Clavulanate [Augmentin 875-125 Tab*] 875 mg PO BID #20 tab Docusate [Colace Cap*] 100 mg PO BID #20 cap Polyethylene Glycol 3350 [Miralax] 17 gm PO DAILY 6PM #20 Ketorolac [Toradol] 10 mg FT Q4H PRN #30 tab PRN Reason: Pain Scale 8-10 (Severe) Physician Discharge Instructions: Continue antibiotics Continue bowel regimen Follow-up with PCP in 1 week Follow-up with surgery in 2 weeks time Diet: Regular Activity: Ad rossana Followup: Abdon Rai MD [ACTIVE - CAN ADMIT] - (call to schedule appointment for Tuesday) Prasanna Salgado MD [Primary Care Provider] - Time spent managing pt's care (in minutes): 48
--- NOTE | 2024-12-23 20:51 | PN ---
Date of Progress Note: 12/23/2024 Diagnosis: Status post I and D, perirectal abscess. Subjective: Patient is doing better. The packing was removed today. No fever. Objective: Abdomen: Soft and depressible. Genitourinary: Perianal region, no redness seen. Laboratory Data: Cultures reviewed showed E coli sensitive to amoxicillin. Plan: Patient wants to go home. From our standpoint, there are no issues. 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 It is important he takes th e antibiotics. In few days if he improved, I would like to repeat the CAT scan to see the progress. I advised him to follow up in my office in the next few days. If fever comes back or the tendernes s comes back, he has to come back to the ER for IV antibiotics. I have explained to him the importan ce, it is imperative that he just may avoid constipation, so we explained to him few ways how to dimi mick the chance of that. If he does not go home today, then we will see him tomorrow and continue to monitor him. NILA/BRANDIE Voice ID: [id number] Report ID: [id number]
== END 2024-12-23 21:22 | disposition home or self-care (01) | DRG 346 ==
LOC: ER 10:18 → ERHOLD 14:03 → 2ND 17:07
PROVIDERS: ADMIT Hospitalist; ATTEND Hospitalist
PROC: 0D9P0ZZ Drainage of Rectum, Open Approach (ICD-10-PCS; principal; 2024-12-21 13:15)
DX: K61.2 Anorectal abscess (principal); D64.9 Anemia, unspecified; E87.6 Hypokalemia; E66.9 Obesity, unspecified; E78.1 Pure hyperglyceridemia; G47.33 Obstructive sleep apnea (adult) (pediatric); B96.20 Unspecified Escherichia coli [E. coli] as the cause of diseases classified elsewhere; Z68.32 Body mass index [BMI] 32.0-32.9, adult; Z79.899 Other long term (current) drug therapy
CPT/HCPCS: 36415; 72193; 80048; 85025; 85610; 85730; 87070; 87075; 87077; 87186; 87205; 94010; 96365; 96375; 99285; J1100; J2003; J2175; J2250; J2270; J2405; J2543; J2704; J3010; J3480; J7030; J7040; J7120; Q9967

== ENCOUNTER 2024-12-28 21:28 | Emergency (ER) | payer OTHER ==
--- OUTSIDE RECORDS SUMMARY | 2024-12-28 21:45 | XMS REPORT | Continuity of Care Document ---
Author Name Unknown Address [address] [facility] [address] [place] [address] [facility] [place] [facility] [address] [facility] [place] [address] Care Team Providers Care Insurance Healthcare Representative Name Role Phone NELLY DAMON Primary Care Physician UnavailLita Palacio Attending Clinician Unavailable Luke Fofana Attending Clinician [phone] Unknown, Attending Attending Clinician Unavailab LUKE Holt Attending Clinician Unavailable Nelly Velasquez Attending Clinician [phone] ARNAUD COULTER Attending Clinician UnavailARNAUD Dave Attending Clinician UnavailArnaud Dave MD Attending Clinician [phone] [facility] Attending Clinician UnavailNELLY Schwartz Attending Clinician Unavailable Nelly Velasquez Attending Clinician [phone] AJ PUGA Attending Clinician Unavailable Aj Puga MD Attending Clinician [phone] Unknown, Attending Attending Clinician Unavailab Edita Villatoro Attending Clinician [phone] EDITA SHAFFER Attending Clinician Unavailable Doctor Unassigned, Camino Tassajara Attending Clinician U navailable Lab, Ang - Db Attending Clinician Unavailable Alice Corbin RN Attending Clinician Unavailab Freida Montanez Attending Clinician [phone] Payers Payer Name Policy Type Policy Number Effective Date Expirati on Date Source [facility] [id number] 2020 00:00:00 Problems Condition Name Condition Details Condition Category Status Onset Date Resolution Date Last Treatment Date Treating Clinician Comments Source Obesity (BMI 30-39.9) Obesity (BMI 30-39.9) Disease Active 06-12 00:00: 00 [facility] Hypertrigl yceridemia Hypertrigl yceridemia Diagnosis Active [facility] Overweight (BMI 25.0-29.9) Overweight (BMI 25.0-29.9) Diagnosis Active [facility] Encounter for vitamin deficiency screening Encounter for vitamin deficiency screening Problem Active [facility] BMI 28.0-28.9, adult BMI 28.0-28.9, adult Problem Active [facility] 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 [facility] Hyperlipid emia, unspecifie d Hyperlipid emia, unspecifie d Problem Active [facility] Allergies, Adverse Reactions, Alerts Allergy Name Allergy Type Status Severity Reaction(s) Onset Date Inactive Date Treating Clinician Comments Source NO KNOWN ALLERGIE S Drug Class Active [facility] Social History Social Habit Start Date Stop Date Quantity Comments Source [facility] Alcoholic beverage intake 2024-05-16 00:00:00 2024-05-16 00:00:00 Ex-drinker (finding) [facility] History of Social function 2024-03-28 00:00:00 2024-03-28 00:00:00 [facility] Alcohol Comment 2024-03-28 00:00:00 2024-03-28 00:00:00 occasional [facility] Exposure to SARS-CoV-2 (event) 2022-10-29 00:00:00 2022-11-08 12:28:00 Not sure [facility] Alcohol intake 2022-06-18 00:00:00 2022-06-18 00:00:00 .43 /d [facility] Tobacco use and exposure 2021-06-12 00:00:00 2021-06-12 00:00:00 Smokeless tobacco non-user [facility] Sex assigned at 1990 00:00:00 1990 00:00:00 [facility] Smoking Status Start Date Stop Date Source Never smoked tobacco [facility] Medications Ordered Medication Name Filled Medication Name Start Date Stop Date Current Medication? Ordering Clinician Indication Dosage Frequency Signature (SIG) Comments Components Source promethazin e-dextromet horphan 6.25-15 mg/5 mL syrup 12-13 00:00: 00 12-24 04:59 :00 Yes [id number] 10mL Take 10 mL by mouth 4 (four) times daily for 10 days. [facility] oseltamivir (TAMIFLU) 75 mg capsule 12-13 00:00: 00 12-19 04:59 :00 Yes [id number] 75mg Take 1 capsule by mouth in the morning and 1 capsule in the evening. Do all this for 5 days. [facility] FENOFIBRATE MICRONIZED 134 mg capsule 2023-09 00:00: 00 Yes [id number] 134mg Take 1 capsule by mouth in the morning [facility] bromphenira mine-pseudo ephedrine-D M (BROMFED DM) 2-30-10 mg/5 mL syrup 04-15 00:00: 00 Yes [id number] 10mL Take 10 mL by mouth 4 (four) times daily as needed for Congestion /Allergies or Cold symptoms. [facility] methylPREDN ISolone (MEDROL, KATHERIN,) 4 mg tablets 04-15 00:00: 00 Yes [id number] Take by mouth SEE-INSTRU CTIONS. follow package directions [facility] guaiFENesin 400 mg tablet 04-15 00:00: 00 Yes [id number] 400mg Take 1 tablet by mouth every 4 (four) hours as needed for Cough. [facility] amoxicillin -clavulanat e (AUGMENTIN) 875-125 mg per tablet 04-15 00:00: 00 04-26 04:59 :00 No [id number] 1{tbl} Take 1 tablet by mouth in the morning and 1 tablet in the evening. Do all this for 10 days. [facility] albuterol 90 mcg/actuati on inhaler 04-10 00:00: 00 04-21 04:59 :00 No [id number] 2{puff} Inhale 2 Puffs every 6 (six) hours as needed (cough) for up to 10 days. [facility] benzonatate 200 mg capsule 04-10 00:00: 00 04-21 04:59 :00 No [id number] 200mg Take 1 capsule by mouth 3 (three) times daily as needed for Cough for up to 10 days. [facility] fenofibrate micronized 134 mg capsule 03-29 00:00: 00 07-20 00:00 :00 No [id number] 134mg Take 1 capsule by mouth in the morning. [facility] predniSONE 20 mg tablet 25 00:00: 00 03-28 00:00 :00 No [id number] Take three tablets daily for 6 days, then two tablets daily for 6 days, then one tablet daily for 6 days, then half tablet daily for 6 days. [facility] sulfamethox azole-trime thoprim (BACTRIM DS) 800-160 mg per tablet 11-08 00:00: 11-16 05:59 :00 No [id number] 1{tbl} Take 1 tablet by mouth in the morning and 1 tablet in the evening. Do all this for 7 days. [facility] mupirocin 2 % ointment 11-08 00:00: 11-16 05:59 :00 No [id number] Apply to area(s) 3 (three) times daily for 7 days. [facility] ibuprofen (IBU) tablet 800 mg 06-18 14:36: 00 06-18 14:38 :00 No [id number] 800mg [facility] ondansetron (ZOFRAN-ODT ) disintegrat ing tablet 4 mg 06-18 14:33: 00 06-18 14:37 :00 No [id number] 4mg [facility] ondansetron 4 mg disintegrat ing tablet 06-18 00:00: 00 03-28 00:00 :00 No [id number] 4mg Take 1 tablet by mouth every 8 (eight) hours as needed for Nausea and Vomiting (N/V). [facility] dicyclomine 10 mg capsule 06-18 00:00: 00 03-28 00:00 :00 No [id number] 10mg Take 1 capsule by mouth 4 (four) times daily as needed for Abdominal pain. [facility] No known medications 06-12 14:08: 26 No [facility] Vascepa Vascepa 01-04 00:00: 00 05-04 00:00 :00 No Na Katz 2 capsules with meals [facility] Ambien Ambien 12-22 00:00: 00 Yes Na Katz 1 tablet at bedtime [facility] Vital Signs Vital Name Observation Time Observation Value Comments S ource Systolic blood pressure 2024-12-13 20:41:00 113 mm[Hg] [facility] Diastolic blood pressure 2024-12-13 20:41:00 71 mm[Hg] [facility] Heart rate 2024-12-13 20:41:00 97 /min [facility] Body temperature 2024-12-13 20:41:00 38 Jacquie [facility] Respiratory rate 2024-12-13 20:41:00 22 /min [facility] Body weight 2024-12-13 20:41:00 107.82 kg [facility] BMI 2024-12-13 20:41:00 33.15 kg/m2 [facility] Oxygen saturation in Arterial blood by Pulse oximetry 2024-12-13 20:41:00 97 /min [facility] Systolic blood pressure 2024-07-04 20:19:00 128 mm[Hg] [facility] Diastolic blood pressure 2024-07-04 20:19:00 86 mm[Hg] [facility] Heart rate 2024-07-04 20:19:00 58 /min [facility] Respiratory rate 2024-07-04 20:19:00 16 /min [facility] Body height 2024-07-04 20:19:00 180.3 cm [facility] Body weight 2024-07-04 20:19:00 105.348 kg [facility] BMI 2024-07-04 20:19:00 32.39 kg/m2 [facility] Oxygen saturation in Arterial blood by Pulse oximetry 2024-07-04 20:19:00 97 /min [facility] Systolic blood pressure 2024-04-19 14:17:00 121 mm[Hg] [facility] Diastolic blood pressure 2024-04-19 14:17:00 76 mm[Hg] [facility] Heart rate 2024-04-19 14:17:00 66 /min [facility] Body temperature 2024-04-19 14:17:00 37 Jacquie [facility] Body height 2024-04-19 14:17:00 180.3 cm [facility] Body weight 2024-04-19 14:17:00 104.327 kg [facility] BMI 2024-04-19 14:17:00 32.08 kg/m2 [facility] Oxygen saturation in Arterial blood by Pulse oximetry 2024-04-19 14:17:00 97 /min [facility] Systolic blood pressure 2024-04-15 14:20:00 118 mm[Hg] [facility] Diastolic blood pressure 2024-04-15 14:20:00 80 mm[Hg] [facility] Heart rate 2024-04-15 14:20:00 88 /min [facility] Body temperature 2024-04-15 14:20:00 37.61 Jacquie [facility] Respiratory rate 2024-04-15 14:20:00 17 /min [facility] Body height 2024-04-15 14:20:00 180.3 cm [facility] Body weight 2024-04-15 14:20:00 104.866 kg [facility] BMI 2024-04-15 14:20:00 32.24 kg/m2 [facility] Oxygen saturation in Arterial blood by Pulse oximetry 2024-04-15 14:20:00 94 /min [facility] Systolic blood pressure 2024-04-10 14:38:00 124 mm[Hg] [facility] Diastolic blood pressure 2024-04-10 14:38:00 82 mm[Hg] [facility] Heart rate 2024-04-10 14:38:00 77 /min [facility] Body temperature 2024-04-10 14:38:00 36.22 Jacquie [facility] Respiratory rate 2024-04-10 14:38:00 17 /min [facility] Body height 2024-04-10 14:38:00 180.3 cm [facility] Body weight 2024-04-10 14:38:00 105.915 kg [facility] BMI 2024-04-10 14:38:00 32.57 kg/m2 [facility] Oxygen saturation in Arterial blood by Pulse oximetry 2024-04-10 14:38:00 97 /min [facility] Systolic blood pressure 2024-03-28 13:58:00 127 mm[Hg] [facility] Diastolic blood pressure 2024-03-28 13:58:00 83 mm[Hg] [facility] Heart rate 2024-03-28 13:58:00 71 /min [facility] Body temperature 2024-03-28 13:58:00 36.72 Jacquie [facility] Respiratory rate 2024-03-28 13:58:00 19 /min [facility] Body height 2024-03-28 13:58:00 180.3 cm [facility] 2024-03-28 13:58:00 107.049 kg [facility] BMI 2024-03-28 13:58:00 32.92 kg/m2 [facility] Oxygen saturation in Arterial blood by Pulse oximetry 2024-03-28 13:58:00 98 /min [facility] Body weight 2022-11-08 18:41:00 94.212 kg [facility] BMI 2022-11-08 18:41:00 28.97 kg/m2 [facility] Oxygen saturation in Arterial blood by Pulse oximetry 2022-11-08 18:41:00 98 /min [facility] Systolic blood pressure 2022-11-08 18:41:00 126 mm[Hg] [facility] Diastolic blood pressure 2022-11-08 18:41:00 86 mm[Hg] [facility] Heart rate 2022-11-08 18:41:00 91 /min [facility] Body temperature 2022-11-08 18:41:00 36.78 Jacquie [facility] Respiratory rate 2022-11-08 18:41:00 17 /min [facility] Body height 2022-11-08 18:41:00 180.3 cm [facility] Systolic blood pressure 2022-06-18 14:28:00 127 mm[Hg] [facility] Diastolic blood pressure 2022-06-18 14:28:00 80 mm[Hg] [facility] Heart rate 2022-06-18 14:28:00 125 /min [facility] Body temperature 2022-06-18 14:28:00 38.89 Jacquie [facility] Body height 2022-06-18 14:28:00 180.3 cm [facility] Body weight 2022-06-18 14:28:00 104.327 kg [facility] BMI 2022-06-18 14:28:00 32.08 kg/m2 [facility] Oxygen saturation in Arterial blood by Pulse oximetry 2022-06-18 14:28:00 98 /min [facility] Systolic blood pressure 2021-06-12 18:40:00 133 mm[Hg] [facility] Diastolic blood pressure 2021-06-12 18:40:00 84 mm[Hg] [facility] Heart rate 2021-06-12 18:40:00 69 /min [facility] Body temperature 2021-06-12 18:40:00 37.06 Jacquie [facility] Body height 2021-06-12 18:40:00 180.3 cm [facility] Body weight 2021-06-12 18:40:00 104.327 kg [facility] BMI 2021-06-12 18:40:00 32.08 kg/m2 [facility] Oxygen saturation in Arterial blood by Pulse oximetry 2021-06-12 18:40:00 99 /min [facility] Procedures Procedure Date / Time Performed Performing Clinicia n Source POCT MOLECULAR FLU 2024-12-13 20:43:00 Unknown, Attend ing [facility] SLEEP STUDY DATA REPORT 2024-05-15 19:03:02 Nelly Damon [facility] SLEEP LAB RESULTS 2024-05-15 19:02:07 Nelly Damon [facility] XR CHEST 2 VW 2024-04-15 14:44:23 Aj Puga [facility] POCT MOLECULAR STREP 2024-04-15 14:25:00 Unknown, Percio leigh [facility] POCT SARS-COV-2 ANTIGEN (BINAX NOW) 2024-04-15 14:17:00 Aj Puga [facility] POCT MOLECULAR FLU 2022-06-18 14:40:00 Aj Puga [facility] CONSENT/REFUSAL FOR DIAGNOSIS AND TREATMENT 2022-06-18 14:15:57 Doctor Unassigned, Camino Tassajara [facility] Encounters Start Date/Time End Date/Time Encounter Type Admission Type Attending [facility] Care Facility Care Department Encounter ID Source 2024-05-28 09:42:00 [id number] 2024-12-22 09:40:00 2024-12-22 09:40:00 Outpatient R [facility] [id number] [facility] 2024-12-13 15:40:00 2024-12-13 16:00:00 Urgent Care Luke Givens Unknown, Attending [facility] 1.2.840.114 350.1.13.10 4.2.7.2.686 [id number] [facility] 2024-12-13 15:40:00 2024-12-13 15:40:00 Outpatient LUKE DAVILA [facility] [id number] [facility] 2024-05-15 00:00:00 2024-11-03 07:03:54 Orders Only Gavin Nelly A [facility] 1.2.840.114 350.1.13.10 4.2.7.2.686 [id number] [facility] 2024-05-15 00:00:00 2024-11-03 07:03:42 Orders Only Gavin Nelly Gagan [facility] 1.2.840.114 350.1.13.10 4.2.7.2.686 [id number] [facility] 2024-08-21 00:00:00 2024-08-21 16:28:44 Refill Nelly Damon [facility] 1.2.840.114 350.1.13.10 4.2.7.2.686 [id number] [facility] 2024-06-28 00:00:00 2024-08-04 18:27:02 Patient Secure Msg Nelly Damon [facility] 1.2.840.114 350.1.13.10 4.2.7.2.686 [id number] [facility] 2024-07-20 00:00:00 2024-07-20 09:38:41 Refill Nelly Damon [facility] 1.2.840.114 350.1.13.10 4.2.7.2.686 [id number] [facility] 2024-07-04 00:00:00 2024-07-04 15:30:40 Telephone Arnaud Coulter [facility] 1.2.840.114 350.1.13.10 4.2.7.2.686 [id number] [facility] 2024-07-04 15:00:00 2024-07-04 15:30:00 Office Visit Arnaud Coulter [facility] 1.2.840.114 350.1.13.10 4.2.7.2.686 [id number] [facility] 2024-07-04 15:00:00 2024-07-04 15:00:00 Outpatient R ARNAUD COULTER STRAHIL [facility] [id number] [facility] 2024-06-05 00:00:00 2024-06-05 15:52:36 Telephone Nelly Damon [facility] 1.2.840.114 350.1.13.10 4.2.7.2.686 [id number] [facility] 2024-05-24 00:00:00 2024-05-28 14:21:17 Patient Secure Msg Nelly Damon [facility] 1.2.840.114 350.1.13.10 4.2.7.2.686 [id number] [facility] 2024-05-25 00:00:00 2024-05-25 16:02:06 Telephone Nelly Damon [facility] 1.2.840.114 350.1.13.10 4.2.7.2.686 [id number] [facility] 2024-05-16 00:00:00 2024-05-16 09:20:36 Telephone Nelly Damon [facility] 1..840.114 350.1.13.10 4.2.7.2.686 [id number] [facility] 2024-05-10 15:00:00 2024-05-10 15:15:00 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 Maintenance Internship Visit [facility] Arnaud Coulter [facility] 1..840.114 350.1.13.10 4.2.7.2.686 [id number] [facility] 2024-05-10 15:00:00 2024-05-10 15:00:00 Outpatient R ARNAUD COULTER STRAHIL [facility] [id number] [facility] 2024-04-19 09:30:00 2024-04-19 10:00:22 Outpatient R NELLY DAMON [facility] [id number] [facility] 2024-04-19 09:30:00 2024-04-19 10:00:22 [facility] 1.2.840.114 350.1.13.10 4.2.7.2.686 [id number] [facility] 2024-04-15 09:30:05 2024-04-15 23:59:00 Outpatient R AJ PUGA [facility] [id number] [facility] 2024-04-15 09:30:05 2024-04-15 23:59:00 Hospital Encounter Aj Puga [facility] 1.2.840.114 350.1.13.10 4.2.7.2.686 [id number] [facility] 2024-04-15 09:20:00 2024-04-15 09:51:36 Urgent Care Aj Puga Unknown, Attending [facility] 1.84114 350.1.13.10 4.2.7.2.686 [id number] [facility] 2024-04-10 09:20:00 2024-04-10 09:40:00 Urgent Care Edita Shaffer Unknown, Attending [facility] 1.84114 350.1.13.10 4.2.7.2.686 [id number] [facility] 2024-04-10 09:20:00 2024-04-10 09:20:00 Outpatient R SHAFFER, EDITA [facility] [id number] [facility] 2024-03-29 00:00:00 2024-03-29 16:06:27 Patient Secure Msg Doctor Unassigned, Camino Tassajara [facility] 1.84.114 350.1.13.10 4.2.7.2.686 [id number] [facility] 2024-03-29 14:30:00 2024-03-29 14:30:00 Outpatient R [facility] [id number] [facility] 2024-03-29 00:00:00 2024-03-29 07:56:05 Telephone [facility] 1.84.114 350.1.13.10 4.2.7.2.686 [id number] [facility] 2024-03-28 10:00:00 2024-03-28 10:15:00 Landscape Maintenance Internship Visit Lab, Nelly Watkins [facility] 1.84.114 350.1.13.10 4.2.7.2.686 [id number] [facility] 2024-03-28 10:00:00 2024-03-28 09:34:42 Outpatient R NELLY DAMON [facility] [id number] [facility] 2024-03-28 09:00:00 2024-03-28 09:20:32 Office Visit Nelly Damon A [facility] 1..840.114 350.1.13.10 4.2.7.2.686 [id number] [facility] 2023-12-12 11:40:00 2023-12-12 11:56:55 Outpatient R EDITA SHAFFER [facility] [id number] [facility] 2022-11-08 12:20:00 2022-11-08 12:40:00 Urgent Care Daja Shafferbreakimberley Unknown, Attending [facility] 1..840.114 350.1.13.10 4.2.7.2.686 [id number] [facility] 2022-11-08 12:20:00 2022-11-08 12:20:00 Outpatient R SHAFFER, EDITA [facility] [id number] [facility] 2022-06-19 00:00:00 2022-06-19 00:00:00 Letter (Out) Alice Corbin [facility] 1..840.114 350.1.13.10 4.2.7.2.686 [id number] [facility] 2022-06-18 09:20:00 2022-06-18 09:58:39 Outpatient AJ MELLO [facility] [id number] [facility] 2022-06-18 09:20:00 2022-06-18 09:40:00 Urgent Care Freida Buckley Amanda [facility]FERNANDOGagan [facility] 1..840.114 350.1.13.10 4.2.7.2.686 [id number] [facility] 2022-06-18 00:00:00 2022-06-18 00:00:00 Orders Only Doctor Unassigned, Camino Tassajara [facility] 1.2.840.114 350.1.13.10 4.2.7.2.686 [id number] [facility] 2021-06-12 13:24:05 2021-06-12 14:19:55 Office Visit Nelly Damon [facility] 1..840.114 350.1.13.10 4.2.7.2.686 [id number] [facility] 2021-06-12 13:30:00 2021-06-12 13:30:00 Outpatient R NELLY DAMON [facility] [id number] [facility] 2020-12-18 13:00:00 2020-12-18 13:00:00 Outpatient NELLY TOBIN [facility] [id number] [facility] 2019-01-04 16:40:00 2019-01-04 16:40:00 [facility] [id number] [facility] Results Test Description Test Time Test Comments Results Result Co mments Source [facility] SARS-COV-2 ANTIGEN (BINAX NOW)2024-04-15 14:33:00* Test Item Value Reference Range Interpretation Comme nts POCT SARS-COV-2 ANTIGEN (test code = 59901-5) Not Detected Not Detected, See Comment On board controls acceptable with C Line (test code = 3574) Yes Lab Interpretation (test code = 64474-3) Normal [facility] MOLECULAR [id number] 14:32:52* Test Item Value Reference Range Interpretation Comme nts POCT Molecular Strep (test c ode = 09413-9) Negative Negative Lab Interpretation (test cod e = 05496-9) Normal [facility] MOLECULAR [id number] 14:51:39* Test Item Value Reference Range Interpretation Comme nts POCT Molecular FluA (test co de = 97090-1) Negative Negative POCT Molecular FluB (test co de = 58479-9) Negative Negative Lab Interpretation (test cod e = 58813-6) Normal [facility] Notes Date/Time Note Provider Source 2024-08-21 16:21:17 Spoke with patient, he still has a 30 day supply of fenofibrate and he will talk to his about scheduling appointment, they my be changing providers. [employer] Gladis Noriega MA [facility] 2024-07-20 09:38:03 Images from the original note were not included. Notes: 03/29/24 Last Refilled: [facility] [address] [place] [address] Recent Visits Date Type Provider Dept 04/19/24 Office Visit Nelly Damon PA Ang-Db Cbc Fam Med 03/28/24 Office Visit Nelly [...] ALISE Platt Last refill: 06/24/2024 Rx #: [id number] Antilipid: Fibric Acid Derivatives Ujomsr6207/20/2024 05:54 AM Protocol Details Valid encounter within last 12 months AST in normal range and within 360 days ALT in normal range and within 360 days HDL within 360 days LDL within 360 days Total Cholesterol within 360 days Triglycerides within 360 days To be filled at: [address] [facility] Terese Montoya MA [facility] 2024-07-04 15:47:49 New APAP orders submitted via [place] to [facility] Patient. All forms scanned into chart. If any questions on status order please contact [facility] at [phone]. Shayy Alvarez MA [facility] 2024-07-04 15:29:46 New APAP at 5-15 cm H2O SLEEP MEDICINE-PHYSICIAN/I NTERNAL MED [facility] 2024-06-29 14:38:04 Noted Gladis Noriega MA [facility] 2024-06-05 15:49:00 Patient signed Medical release forms to have faxed to [facility] P: [phone] F:[phone] Faxed to HIM to retreive those records and have it faxed. Jose F Chang [facility] 2024-05-25 15:59:39 Images from the original note were not included. [facility] medical records request form.// placed in providers basket. Freida Irizarry [facility] 2024-05-24 20:32:44 Recommend patient signing a record release from our office to send sleep apnea testing to his provider at the [facility]. He can complete with [facility]SS at any time M-F. [facility] 2024-03-28 10:00:00 Images from the original note were not included. Venipuncture collection performed by clean technique on the left anticubitus. Total of 1 attempts were made. Slight pressure and a bandage/dressing were applied to the site(s). The patient experienced no complications. The following specimens were processed according to instructions and sent to [facility] laboratories per lab order on 03/28/2024 : LT BLUE SST 2 RED LAV 2 PPT DK GREEN (LiHep) DK GREEN (SodH) OBANDO DK BLUE (K2) DK BLUE (S) ACD Blood Culture NIPT/NTD T [facility]
[2024-12-29] MEDS ORDERED: ONDANSETRON 4 MG/2 ML VIAL ONE (02:04)
[2024-12-29] MEDS ORDERED: MORPHINE 4 MG/ML SYR ONE (02:04)
[2024-12-29 02:45] LABS: Absolute Eosinophils 0.1 K/uL (0-0.5); Absolute Lymphocytes (CBC) 1.7 K/uL (0.7-4.9); Absolute Monocytes 0.9 K/uL (0.1-1.3); Absolute Neutrophil 10.5 K/uL (1.8-8.0); Basophils % 0.3 % (0-1.3); Eosinophils % 0.7 % (0-4.4); Hemoglobin 12.5 g/dL (13.6-17.9); Lymphocytes % 12.7 % (15.3-44.8); MCH 30.1 pg (27.0-35.0); MCHC 34.8 g/dL (32.0-36.0); MCV 86.5 fL (80-100); MPV 9.4 fL (7.6-11.3); Monocytes % 7.1 % (3.3-12.3); Neutrophils % 79.2 % (41.7-73.7); Nucleated Red Blood Cells % 0.1 % (0-0); Platelets 308 thou/uL (152-406); RBC Red Blood Cell Count 4.16 M/uL (4.33-5.43); Red Cell Distribution Width 13.5 % (12.1-15.2)
[2024-12-29 02:50] LABS: PT Prothrombin Time 14.3 SECONDS (10-13.0); PTT, Activated Partial Thromb 31.9 SECONDS (27.2-37.4); Protime INR 1.27
[2024-12-29 02:58] LABS: Albumin 3.8 g/dL (3.4-5.0); Albumin/Globulin Ratio 0.8 (1.1-1.8); Anion Gap 6.9 mEq/L (5.0-15.0); Bilirubin Total 0.6 mg/dL (0.2-1.0); Globulin 4.7 g/dL (2.3-3.5); Potassium 3.9 mEq/L (3.5-5.1); Protein, Total 8.5 g/dL (6.4-8.2)
--- NOTE | 2024-12-29 06:29 | EDPHYS ---
Physician Documentation [facility] Name: Reyes Miles Age: 34 yrs Sex: Male : 1990 Arrival Date: 12/28/2024 Time: 21:28 Bed 17 Private MD: ED Physician Yuliana Farris HPI: 12/29 03:33 This 34 yrs old Male presents to ER via Ambulatory with complaints of Post Surgical sp3 Problem. 03:33 34-year-old male with history of hyperlipidemia who is approximately 1 week status post sp3 perirectal abscess drainage by Dr. Rai presents to the ED with chief complaint pelvic pain extending into bilateral lower extremities. Subjective fever at home. Patient comes in for evaluation and to ensure "everything is okay with the surgery". He denies fever, chest pain, shortness of breath, upper abdominal pain, back pain, saddle anesthesia/paresthesia, inability to walk, significant bleeding or any other signs or symptoms on ROS at this time. He is currently on p.o. amoxicillin.. Historical: - Allergies: 12/28 23:12 No Known Allergies; lg3 - Home Meds: 23:12 fenofibrate oral [Active]; lg3 - PMHx: 23:12 Elevated Triglycerides; lg3 - PSHx: 23:12 rectal abcess (Elevated Triglycerides); lg3 - Immunization history:: Adult Immunizations up to date. - Infectious Disease History:: Denies. - Social history:: Smoking status: Patient denies any tobacco usage or history of. Patient/guardian denies using alcohol, street drugs. ROS: 12/29 03:34 Constitutional: Negative for fever, chills, and weight loss, Eyes: Negative for injury, sp3 pain, redness, and discharge, ENT: Negative for injury, pain, and discharge, Neck: Negative for injury, pain, and swelling, Cardiovascular: Negative for chest pain, palpitations, and edema, Respiratory: Negative for shortness of breath, cough, wheezing, and pleuritic chest pain, Back: Negative for injury and pain, MS/Extremity: Negative for injury and deformity, Skin: Negative for injury, rash, and discoloration, Neuro: Negative for headache, weakness, numbness, tingling, and seizure, Psych: Negative for depression, anxiety, suicide ideation, homicidal ideation, and hallucinations, Allergy/Immunology: Negative for hives, rash, and allergies, Endocrine: Negative for neck swelling, polydipsia, polyuria, polyphagia, and marked weight changes, Hematologic/Lymphatic: Negative for swollen nodes, abnormal bleeding, and unusual bruising, All other systems are negative, Exam: 03:34 Constitutional: This is a well developed, well nourished patient who is awake, alert, sp3 and in no acute distress. Head/Face: Normocephalic, atraumatic. Eyes: Pupils equal round and reactive to light, extra-ocular motions intact. Lids and lashes normal. Conjunctiva and sclera are non-icteric and not injected. Cornea within normal limits. Periorbital areas with no swelling, redness, or edema. Neck: Trachea midline, no thyromegaly or masses palpated, and no cervical lymphadenopathy. Supple, full range of motion without nuchal rigidity, or vertebral point tenderness. No Meningismus. Chest/axilla: Normal chest wall appearance and motion. Nontender with no deformity. No lesions are appreciated. Cardiovascular: Regular rate and rhythm with a normal S1 and S2. No gallops, murmurs, or rubs. Normal PMI, no JVD. No pulse deficits. Respiratory: Lungs have equal breath sounds bilaterally, clear to auscultation and percussion. No rales, rhonchi or wheezes noted. No increased work of breathing, no retractions or nasal flaring. Back: No spinal tenderness. No costovertebral tenderness. Full range of motion. Skin: Warm, dry with normal turgor. Normal color with no rashes, no lesions, and no evidence of cellulitis. Neuro: Awake and alert, GCS 15, oriented to person, place, time, and situation. Cranial nerves II-XII grossly intact. Motor strength 5/5 in all extremities. Sensory grossly intact. Cerebellar exam normal. Normal gait. Psych: Awake, alert, with orientation to person, place and time. Behavior, mood, and affect are within normal limits. 03:34 : Wound with no significant drainage or bleeding, Vital Signs: 12/28 23:10 BP 132 / 91; Pulse 83; Resp 16 S; Temp 98.7(O); Pulse Ox 99% ; Weight 104.33 kg; Height lg3 5 ft. 11 in. ; Pain 7/10; 12/29 03:00 BP 138 / 74; Pulse 67; Resp 17; Pulse Ox 99% ; j7 04:00 BP 125 / 61; Pulse 69; Resp 17; Pulse Ox 99% ; j7 05:00 BP 124 / 62; Pulse 69; Resp 17; Pulse Ox 97% ; j7 06:00 BP 125 / 56; Pulse 71; Resp 20; Pulse Ox 96% ; j7 07:05 BP 121 / 65; Pulse 70; Resp 18; Temp 98.3; Pulse Ox 96% ; 7 12/28 23:10 Body Mass Index 32.08 (104.33 kg, 180.34 cm) 3 12/28 23:10 Pain Scale: Adult lg3 MDM: 12/28 23:28 Medical Screening Exam initiated sp3 12/29 03:35 Data reviewed: vital signs, nurses notes, old medical records, lab test result(s), sp3 radiologic studies. ED course: 34-year-old male with PMH above approximately 1 week postoperative from rectal abscess now with pain. Differential diagnosis includes surgical complication versus postop pain. Will obtain CT scan of the abdomen pelvis and general labs. If negative follow-up with Dr. Epperson as outpatient versus admission for any complication. Pain is currently controlled and vital signs are normal.. 06:27 ED course: CT shows no significant abnormalities. Laboratory values also within normal sp3 limits. We will safely discharge patient to Dr. Rai follow-up.. 12/28 23:13 Order name: CBC with Diff; Complete Time: 03:14 dr5 12/28 23:13 Order name: CMP; Complete Time: 03:14 [facility] 12/28 23:13 Order name: Lactate w/ 2H reflex if indic.; Complete Time: 03:14 dr5 12/28 23:13 Order name: Protime (+inr); Complete Time: 03:14 dr5 12/28 23:13 Order name: Ptt, Activated; Complete Time: 03:14 [facility] 12/28 23:13 Order name: CT Abd/Pelvis - IV Contrast Only dr5 12/28 23:13 Order name: Cardiac monitoring; Complete Time: 03:00 dr5 12/28 23:13 Order name: EKG - Nurse/Tech; Complete Time: 02:24 dr5 12/28 23:13 Order name: IV Saline Lock - Large Bore; Complete Time: 02:24 [facility] 12/28 23:13 Order name: Labs collected and sent; Complete Time: 02:24 dr5 12/28 23:13 Order name: O2 Per Protocol; Complete Time: 02:24 dr5 12/28 23:13 Order name: O2 Sat Monitoring; Complete Time: 02:24 dr5 12/28 23:13 Order name: Vital Signs; Complete Time: 02:59 dr5 Administered Medications: 02:24 Drug: morphine IVP or IV 4 mg IVP once over 4 mins Route: IVP; Infused Over: 4 mins; lg3 Site: left antecubital; 07:06 Follow up: Response: Pain is decreased jj7 02:24 Drug: Ondansetron IVP 4 mg IVP once; over 2 minutes Route: IVP; Site: left antecubital; lg3 04:41 Follow up: Response: Marked relief of symptoms jj7 Disposition Summary: 12/29/24 06:28 Discharge Ordered Notes: Location: Home sp3 Condition: Stable sp3 Diagnosis - Postsurgical pain from perirectal abscess drainage sp3 Followup: sp3 - With: Private Physician - When: Upon discharge from the Emergency Department - Reason: Continuance of care Followup: sp3 - With: Abdon Rai MD - When: Upon discharge from the Emergency Department - Reason: Continuance of care Discharge Instructions: - Discharge Summary Sheet sp3 Forms: - Medication Reconciliation Form sp3 - Antibiotic Education sp3 - Prescription Opioid Use sp3 - Patient Portal Instructions sp3 - Leadership Thank You Letter sp3 Prescriptions: - Tramadol 50 mg Oral Tablet - take 1 tablet ORAL route every 8 hours as needed; 12 tablet; Refills: 0, sp3 Product Selection Permitted Signatures: Dispatcher [employer] Ramya Simmons RN RN lg3 Yuliana Farris MD MD sp3 Khoa Caraballo, BAND TACKER-C BAND TACKER-Cdr5 Giorgio Cuellar RN jj7
--- NOTE | 2024-12-29 06:29 | ER ---
Nurse's Notes [facility] Name: Reyes Miles Age: 34 yrs Sex: Male : 1990 Arrival Date: 12/28/2024 Time: 21:28 Bed 17 Private MD: Diagnosis: Postsurgical pain from perirectal abscess drainage Presentation: 12/28 23:10 Chief complaint: Patient states: rectal abscess surgery Tuesday. pain to bilateral leg lg3 and fever X1 hr. Coronavirus screen: Client denies travel out of the [place] in the last 14 days. At this time, the client does not indicate any symptoms associated with coronavirus-19. Ebola Screen: No symptoms or risks identified at this time. Initial Sepsis Screen: Does the patient meet any 2 criteria? No. Patient's initial sepsis screen is negative. Does the patient have a suspected source of infection? No. Patient's initial sepsis screen is negative. Risk Assessment: Do you want to hurt yourself or someone else? Patient reports no desire to harm self or others. Onset of symptoms was December 28, 2024. 23:10 Method Of Arrival: Ambulatory lg3 23:10 Acuity: ROBIN 3 lg3 Triage Assessment: 23:12 General: Appears in no apparent distress. uncomfortable, Behavior is calm, cooperative. lg3 Pain: Complains of pain in rectum. EENT: No deficits noted. No signs and/or symptoms were reported regarding the EENT system. Neuro: No deficits noted. Luna Agitation-Sedation Scale (RASS): 0 - Alert and Calm Level of Consciousness is awake, alert, obeys commands, Oriented to person, place, time, situation. Cardiovascular: No deficits noted. Denies chest pain, shortness of breath, Capillary refill < 3 seconds Clubbing of nail beds is absent JVD is absent Patient's skin is warm and dry. Respiratory: No deficits noted. Airway is patent Respiratory effort is even, unlabored, Respiratory pattern is regular, symmetrical. GI: No deficits noted. No signs and/or symptoms were reported involving the gastrointestinal system. : Reports pain rectum. Derm: Skin is intact, is healthy with good turgor, Skin is dry, Skin is normal, Skin temperature is warm. Musculoskeletal: No deficits noted. No signs and/or symptoms reported regarding the musculoskeletal system. Circulation, motion, and sensation intact. Range of motion: intact in all extremities. Historical: - Allergies: 23:12 No Known Allergies; lg3 - Home Meds: 23:12 fenofibrate oral [Active]; lg3 - PMHx: 23:12 Elevated Triglycerides; lg3 - PSHx: 23:12 rectal abcess (Elevated Triglycerides); lg3 - Immunization history:: Adult Immunizations up to date. - Infectious Disease History:: Denies. - Social history:: Smoking status: Patient denies any tobacco usage or history of. Patient/guardian denies using alcohol, street drugs. Screenin:14 [facility] ED Fall Risk Assessment (Adult) History of falling in the last 3 months, lg3 including since admission No falls in past 3 months (0 pts) Confusion or Disorientation No (0 pts) Intoxicated or Sedated No (0 pts) Impaired Gait No (0 pts) Mobility Assist Device Used No (0 pt) Altered Elimination No (0 pt) Score/Fall Risk Level 0 - 2 = Low Risk Oriented to surroundings, Maintained a safe environment, Educated pt \T\ family on fall prevention, incl call for assistance when getting out of bed, Assessed \T\ reinforced patient's understanding of fall precautions. Abuse screen: Denies threats or abuse. Denies injuries from another. Nutritional screening: No deficits noted. Tuberculosis screening: No symptoms or risk factors identified. Assessment: 23:14 General: see triage assessment. lg3 12/29 03:00 Reassessment: ASSUMED CARE OF PT. PT LYING IN BED. VS STABLE. FAMILY AT BEDSIDE. CALL nguyễn DARBY IN REACH. General: Appears in no apparent distress. uncomfortable, Behavior is calm, cooperative, appropriate for age. Pain: Complains of pain in right leg and left leg. Musculoskeletal: Capillary refill < 3 seconds, Range of motion: intact in all extremities, Reports pain in right leg and left leg. Vital Signs: 12/28 23:10 BP 132 / 91; Pulse 83; Resp 16 S; Temp 98.7(O); Pulse Ox 99% ; Weight 104.33 kg; Height lg3 5 ft. 11 in. ; Pain 7/10; 12/29 03:00 BP 138 / 74; Pulse 67; Resp 17; Pulse Ox 99% ; jj7 04:00 BP 125 / 61; Pulse 69; Resp 17; Pulse Ox 99% ; jj7 05:00 BP 124 / 62; Pulse 69; Resp 17; Pulse Ox 97% ; jj7 06:00 BP 125 / 56; Pulse 71; Resp 20; Pulse Ox 96% ; jj7 07:05 BP 121 / 65; Pulse 70; Resp 18; Temp 98.3; Pulse Ox 96% ; jj7 12/28 23:10 Body Mass Index 32.08 (104.33 kg, 180.34 cm) lg3 12/28 23:10 Pain Scale: Adult lg3 ED Course: 12/28 21:30 Patient arrived in ED. rg4 23:12 Triage completed. lg3 23:12 Arm band placed on right wrist. lg3 23:14 Patient has correct armband on for positive identification. lg3 23:27 Yuliana Farris MD is Attending Physician. sp3 12/29 02:21 Radiology exam delayed due to lab results not completed at this time. (BUN/Creatinine) nj IV insertion attempt and/or patient not having appropriate IV at this time. 02:33 Giorgio Cuellar RN is Primary Nurse. jj7 03:00 Provided Education on: USE OF CALL DARBY. jj7 03:25 CT Abd/Pelvis - IV Contrast Only In Process Unspecified. EDMS 06:28 Abdon Rai MD is Referral Physician. sp3 07:05 No provider procedures requiring assistance completed. IV discontinued, intact, jj7 bleeding controlled, No redness/swelling at site. Pressure dressing applied. Administered Medications: 02:24 Drug: morphine IVP or IV 4 mg IVP once over 4 mins Route: IVP; Infused Over: 4 mins; lg3 Site: left antecubital; 07:06 Follow up: Response: Pain is decreased jj7 02:24 Drug: Ondansetron IVP 4 mg IVP once; over 2 minutes Route: IVP; Site: left antecubital; lg3 04:41 Follow up: Response: Marked relief of symptoms jj7 Medication: 12/28 23:14 VIS not applicable for this client. lg3 Outcome: 12/29 06:28 Discharge ordered by . sp3 07:05 Discharged to home ambulatory, with family, jj7 07:05 Condition: improved 07:05 Discharge instructions given to patient, family, Instructed on discharge instructions, follow up and referral plans. medication usage, Demonstrated understanding of instructions, follow-up care, medications, Prescriptions given X 07:07 Patient left the ED. jj7 Signatures: Dispatcher [employer] EDNeha Cobos rg4 Tutu Pedro Lacie, RN RN lg3 Yuliana Farris MD MD sp3 Giorgio Cuellar RN RN jj7
--- NOTE | 2024-12-29 06:44 | RAD REPORT ---
CLINICAL HISTORY: Rectal abscess post surgical ID. COMPARISON: CT Pelvis 12/21/[address] Abdomen Pelvis 06/09/2024. TECHNIQUE: CT ABDOMEN PELVIS WITH IV CONTRAST on 12/28/2024 11:13 PM CDT This exam was performed according to our departmental dose-optimization program, which includes autom ated exposure control, adjustment of the mA and/or kV according to patient size and/or use of iterative reconstruction technique. FINDINGS: Lower lungs are clear. Abdomen: The liver is normal in appearance. There is no biliary dilatation. Gallbladder is normal in appearance. The pancreas and spleen are normal in appearance. The adrenal glands and kidneys are unremarkable. Abdominal aorta is normal in course and caliber without aneurysm. There is no free air. There is no r etroperitoneal adenopathy. Pelvis: There is no bowel obstruction. Urinary bladder is unremarkable. There is no free fluid. Appen rhiannon is normal. There is minimal soft tissue swelling within the medial right buttock subcutaneous fat, the site of the recent abscess. There is no residual fluid collection. There is no subcutaneous air within the perineum. Skeleton: There are no acute osseous findings. No suspicious bony lesions. IMPRESSION: Minimal residual soft tissue swelling within the medial right buttock. No residual fluid collection o r perineal air. Electronically signed by: Skinny Taylor MD 12/29/2024 05:58 AM CDT Due to temporary technical issues with the PACS/Digital H2O reporting system, reports are being daina d by the in-house radiologist without review as a courtesy to ensure prompt reporting the interpreting radiologist is fully responsible for the content of the report. Transcribed Date/Time: 12/29/2024 6:43 AM
[2024-12-29 07:18] VITALS: O2SAT 96
[2024-12-29 07:20] VITALS: BP 121/65; TEMP 98.3
== END 2024-12-29 07:07 | disposition home or self-care (01) ==
LOC: ER 21:28
DX: G89.18 Other acute postprocedural pain (principal); Z98.890 Other specified postprocedural states
CPT/HCPCS: 85025; 36415; 85610; 83605; 85730; 80053; 74177; 96375; 96374; 99284; Q9967; J2405; 93005